=== PATIENT | female | born 1955 | race Hispanic/Latino ===

== ENCOUNTER 2016-09-22 13:54 | Inpatient (IN) | payer BC ==
[2016-09-22] MEDS ORDERED: SENOKOT PO PRN (14:29)
[2016-09-22] MEDS ORDERED: DULCOLAX PR PRN (14:29)
[2016-09-22] MEDS ORDERED: XANAX PO PRN (14:37)
--- NOTE | 2016-09-22 15:32 | History and Physical Report ---
History of Present Illness Date: 09/22/16 Referring Facility: [facility] Date of admission: 09/22/16 13:54 Chief Complaint: metabolic encephalopathy History of present illness: POST ADMISSION PHYSICIAN EVALUATION ONSET DATE: 09/09/16 IMPAIRMENT GROUP CODE: 02.1 ETIOLOGIC DIAGNOSIS: metabolic encephalopahty secondary to sepsis STATUS CHANGES SINCE PREADMISSION SCREENING: PAS has been reviewed. In comparison, pt reports depression from recent divorce. Continues with generalized weakness, cognitive deficits. Pt reports being motivated to return to independent living and is ready for therapy evaluations in the morning. Pt continues with functional deficits and remains an appropriate candidate for IRU admission. PREVIOUS FUNCTIONAL STATUS: Independent with ADLs and transfers; Xander for gait with RW CURRENT FUNCTIONAL STATUS: per PAS, Annelise x2 for transfers from elevated surface ; s/u to totalA for ADLs HPI 60 y.o. female admitted to [facility] after being found unresponsive at her independent living facility. On admission, pt noted to be tachycardic and tachypneic, with electrolyte imbalances. Treated for sepsis and dehydration. Acute care course also complicated by acute renal failure requiring initiation of HD (MWF); to have outpt renal biopsy. Hyponatremia has improved; hypokalemia has resolved. Pt was seen and evaluated by PT/OT/FIELD CANE SCALE CLERK and found to have functional deficits due to prolonged hospital course. Pt is now admitted to IRU for aggressive therapies and ongoing medical management. Past History Past Medical History: hypertension, hyperlipidemia, other (multiple sclerosis diagnosed in her 20s with minimal flares; trigeminal neuralgia) Past Surgical History: tonsillectomy, Other (gamma knife ) Social history: . denies: smoking, alcohol abuse Family history: diabetes, stroke Medications and Allergies Active Meds: Active Medications Acetaminophen (Tylenol) 650 mg PO Q4H PRN PRN Reason: Pain MILD(1-3)/Fever >100.5/TAN Alprazolam (Xanax) 0.5 mg PO BID PRN PRN Reason: Anxiety Atenolol (Tenormin) 25 mg PO QDAY [facility] Bisacodyl (Dulcolax) 10 mg [place] QDAY PRN PRN Reason: Constipation unrelieved by MOM Carbamazepine (Tegretol) 200 mg PO QID COUNT [facility]CLUDES [facility] Fish Oil (Fish Oil) 1,200 mg PO BID [facility] Fluoxetine HCl (Prozac) 20 mg PO QDAY COUNT INCLUDES [facility] Heparin Sodium (Porcine) (Heparin) 5,000 unit SUB-Q Q12HR [facility] Hydrocortisone Acetate (Cortef) 60 mg PO BID [facility] Miscellaneous Medication (Tecfidera) 240 mg PO BID [facility] Oxycodone/Acetaminophen (Percocet 5/325) 1 tab PO Q6H PRN PRN Reason: Pain, Moderate (4-6) Senna (Senokot) 8.6 mg PO Q12H PRN PRN Reason: Laxative Effect Review of Systems All systems: negative Ears, nose, mouth and throat: no headache Cardiovascular: no chest pain, no syncope Respiratory: no cough Gastrointestinal: constipation (unsure when last bowel movement was), no nausea , no vomiting Genitourinary Female: no dysuria Neurological: weakness, no parathesias Exam - Constitutional General appearance: no acute distress, obese, other (lying in bed) - EENT Eyes: EOM intact ENT: hearing intact - Neck Neck: supple - Respiratory Respiratory effort: normal Respiratory: bilateral: CTA - Cardiovascular Rhythm: regular Heart Sounds: Present: S1 & S2 - Extremities Extremity abnormal: edema (chronic BLE) - Gastrointestinal General gastrointestinal: Present: soft, non-tender, non-distended, normal bowel sounds - Integumentary Integumentary: Present: clear - Musculoskeletal Musculoskeletal: other (4/5 BUE; 1/5 left hip flexion; 2/5 left knee flexion; 3/ 5 Right hip and knee, B/L ankle) - Neurologic Neurologic: CNII-XII intact - Psychiatric Psychiatric: appropriate mood/affect, intact judgment & insight, no memory intact (oriented to self, birthdate; not to today's date; "[facility]" in [place] or [place]), cooperative Assessment and Plan Assessment and plan: 60 y.o. morbidly obese female with acute metabolic encephalopathy secondary to sepsis; gait dysfunction secondary to prolonged hospital course; acute renal failure requiring ongoing hemodialysis (new onset). The patient is medically stable, however, requires ongoing medical management. Pt is appropriate for inpatient rehabilitation admission and is thought to be able to tolerate at least 3 hours of therapy a day, 5 days a week including 1 hour of physical therapy, 1 hour of occupational therapy, and 1 hour of speech therapy. Patient is able to understand and follow basic directions and has attainable rehab goals. Potential barriers/complications include falls, recurrent sepsis, anxiety/depression, worsening hyponatremia, seizures, worsening renal failure, skin breakdown, DVT, PE. Plan 1. Rehabilitation- Pt will undergo multidisciplinary/integrative rehab PT/OT/ FIELD CANE SCALE CLERK, Nursing. Areas to be addressed include, but are not limited to PT for mobility, strengthening, transfer training, ROM, endurance, stairs, balance; OT for ADLs, household tasks, adaptive equipment; FIELD CANE SCALE CLERK for cognition, compensatory techniques; Nursing for carryover of therapies, education, skin integrity, medication management, bowel/bladder management; Nutrition as needed; healthcare advisory services manager for discharge planning and equipment needs. Potential interventions include appropriate assistive device or adaptive equipment. Expected overall level of functional improvement by discharge is Xander to supervision for ADLs, transfers, gait. Pt will tentatively be discharged home with outpatient PT. Estimated length of stay is 1-2 weeks. 2. acute metabolic encephalopathy- FIELD CANE SCALE CLERK evaluation for cognitive deficits 3. unsteady gait- PT/OT to address balance, gait, strengthening 4. acute renal failure- Nephrology consulted; steroids; continue HD as recommended for now 5. hyponatremia- labs in AM 6. MS- aware; minimal flares; states she hasn't had an exacerbation in years; Tecfidera initially held due to transaminitis; will check labs in AM 7. Anxiety/depression- continue xanax prn; prozac 8. HTN- atenolol 9. DVT px- heparin - Patient Problems (1) Acute metabolic encephalopathy Current Visit: Yes Status: Acute (2) Unsteady gait Current Visit: Yes Status: Acute (3) Acute renal failure on dialysis Current Visit: Yes Status: Acute (4) Hyponatremia Current Visit: Yes Status: Acute (5) Multiple sclerosis Current Visit: Yes Status: Acute (6) Anxiety and depression Current Visit: Yes Status: Acute (7) HTN (hypertension) Current Visit: Yes Status: Acute Qualifiers: Hypertension type: H
[2016-09-22] MEDS: XANAX PO SCH (21:41)
[2016-09-22] MEDS: CORTEF PO SCH (21:41)
[2016-09-22] MEDS: FISH OIL PO SCH (21:41)
[2016-09-22] MEDS: PERCOCET 5/325 PO PRN (21:42)
[2016-09-22] MEDS: HEPARIN SUB-Q SCH (22:39)
[2016-09-23 06:28] LABS: Basophils % (Auto) 1.2 % (0.0-1.8); Eosinophils % (Auto) 0.4 % (0.0-4.3); Hematocrit 24.8 % (30.3-42.9); Hemoglobin 8.5 gm/dl (10.1-14.3); Mean Corpuscular HGB Conc 34 % (30-34); Mean Corpuscular Hemoglobin 32 pg (28-32); Mean Corpuscular Volume 93 fl (79-97); Platelet Count 169 K/mm3 (140-440); Red Blood Count 2.68 M/mm3 (3.65-5.03); Red Cell Distribution Width 13.7 % (13.2-15.2); White Blood Count 6.6 K/mm3 (4.5-11.0)
[2016-09-23 06:51] LABS: Albumin 2.7 g/dL (3.9-5); Albumin/Globulin Ratio 1.1 %; BUN/Creatinine Ratio 10.41; Bilirubin,Total 0.4 mg/dL (0.1-1.2); Calcium 7.9 mg/dL (8.4-10.2); Chloride 97.4 mmol/L (98-107); Potassium 3.9 mmol/L (3.6-5.0); Total Protein 5.1 g/dL (6.3-8.2)
[2016-09-23] MEDS: XANAX PO SCH ×2 (09:20→21:58)
[2016-09-23] MEDS: PROzac PO SCH (09:20)
[2016-09-23] MEDS: TENORMIN PO SCH (09:21)
[2016-09-23] MEDS: FISH OIL PO SCH ×2 (09:23→21:57)
[2016-09-23] MEDS: CORTEF PO SCH ×2 (09:23→21:57)
[2016-09-23] MEDS: HEPARIN SUB-Q SCH ×2 (09:24→22:35)
[2016-09-23] MEDS: PERCOCET 5/325 PO PRN ×2 (10:16→21:58)
--- NOTE | 2016-09-23 13:38 | Progress Note ---
Assessment and Plan 60 y.o. morbidly obese female with acute metabolic encephalopathy secondary to sepsis; gait dysfunction secondary to prolonged hospital course; acute renal failure requiring ongoing hemodialysis (new onset) - acute metabolic encephalopathy- pending SPIKE DRIVER evaluation for cognitive deficits - unsteady gait- ambulated today with PT, 35 feet with modA - acute renal failure- Pending Nephrology consult; newly initiated on HD - hyponatremia- resolved - MS- aware; Tecfidera; LFTs within normal limits - Anxiety/depression- continue xanax prn; prozac - HTN- continue atenolol - DVT px- heparin - Patient Problems (1) Acute metabolic encephalopathy Current Visit: Yes Status: Acute (2) Unsteady gait Current Visit: Yes Status: Acute (3) Acute renal failure on dialysis Current Visit: Yes Status: Acute (4) Multiple sclerosis Current Visit: Yes Status: Acute (5) Anxiety and depression Current Visit: Yes Status: Acute (6) HTN (hypertension) Current Visit: Yes Status: Acute Qualifiers: Hypertension type: essential hypertension Qualified Code(s): I10 - Essential (primary) hypertension (7) Morbid obesity due to excess calories Current Visit: Yes Status: Acute Subjective Principal diagnosis: acute metabolic encephalopathy Interval history: Pt seen between therapies this AM, F/U, IPR course, acute metabolic encephalopathy. Pt reported to be incontinent of bowel and bladder; place on toileting schedule Objective - Constitutional Vitals: Vital Signs - 12hr 09/23/16 09/23/16 08:00 09:21 Temperature 97.7 F Pulse Rate 100 H Pulse Rate [ 100 H Left] Respiratory 24 Rate Blood Pressure 168/89 Blood Pressure 168/89 [Right Arm] O2 Sat by Pulse 100 Oximetry General appearance: Present: no acute distress, obese, other (sitting up in WC; also observed later ambulating in hallway with PT) - EENT Eyes: EOM intact ENT: hearing intact - Neck Neck: supple, normal ROM - Respiratory Respiratory effort: normal Respiratory: bilateral: CTA - Cardiovascular Rhythm: regular Heart Sounds: Present: S1 & S2 Extremity abnormal: edema (BLE, chronic) - Gastrointestinal General gastrointestinal: Present: soft, normal bowel sounds - Musculoskeletal Musculoskeletal: generalized weakness (BLE) - Neurologic Neurologic: CNII-XII intact - Psychiatric Psychiatric: cooperative - Allied health notes Allied health notes reviewed: PT (mod-maxA for transfers; modA x 35 feet with RW ), OT (Xander to totalA for ADLs) - Labs CBC & Chem 7: 09/23/16 05:44 09/23/16 05:44 Labs: Abnormal lab results 09/23/16 09/23/16 Range/Units 05:44 05:44 RBC 2.68 L (3.65-5.03) M/mm3 Hgb 8.5 L (10.1-14.3) gm/dl Hct 24.8 L (30.3-42.9) % Pierce % (Auto) 9.9 H (0.0-7.3) % Lymph # 1.0 L (1.2-5.4) K/mm3 Seg Neutrophils % 72.8 H (40.0-70.0) % Chloride 97.4 L (98-107) mmol/L BUN 25 H (7-17) mg/dL Creatinine 2.4 H (0.7-1.2) mg/dL Glucose 106 H (65-100) mg/dL Calcium 7.9 L (8.4-10.2) mg/dL Total Protein 5.1 L (6.3-8.2) g/dL Albumin 2.7 L (3.9-5) g/dL
[2016-09-23] MEDS: NYSTOP TP SCH ×2 (14:00→22:36)
--- NOTE | 2016-09-23 14:30 | Consultation ---
History of Present Illness - Reason for Consult Consult date: 09/23/16 acute renal failure - History of Present Illness Mrs. Amanuel Nichole is a 60 y.o. female with history of MS , Trigeminal neuralgia presented with AMS after found unresponsive at her assisted living facility. Patient had flu like illness for which she was treated. She had not been eating or drinking well. In the ER, she was found to be tachycardic , tachypneic and hypothermic ( Temp 91 ). Renal function declined during her hospitalization. She was started on hemodialysis on Sep 15. She has been empirically treated with hydrocortisone as she reportedly had a reaction to solumedrol. She remains on hemodidalysis. Nephrology consultation has been requested by the primary team. Past History Past Medical History: hypertension, hyperlipidemia, other (multiple sclerosis diagnosed in her 20s with minimal flares; trigeminal neuralgia) Past Surgical History: tonsillectomy, Other (gamma knife ) Social history: . denies: smoking, alcohol abuse Family history: diabetes, stroke Medications and Allergies Allergies Allergy/AdvReac Type Severity Reaction Status Date / Time No Known Allergies Allergy Verified 09/22/16 18:16 Home Medications Medication Instructions Recorded Confirmed Last Taken Type No Known Home Medications [No 09/22/16 09/22/16 Unknown History Reported Home Medications] Active Meds: Active Medications Acetaminophen (Tylenol) 650 mg PO Q4H PRN PRN Reason: Pain MILD(1-3)/Fever >100.5/TAN Alprazolam (Xanax) 0.5 mg PO BID [facility] Last Admin: 09/23/16 09:20 Dose: 0.5 mg Atenolol (Tenormin) 25 mg PO QDAY [facility] Last Admin: 09/23/16 09:21 Dose: 25 mg Bisacodyl (Dulcolax) 10 mg [place] QDAY PRN PRN Reason: Constipation unrelieved by MOM Carbamazepine (Tegretol) 200 mg PO QID [facility] Last Admin: 09/23/16 14:01 Dose: 200 mg Fish Oil (Fish Oil) 1,000 mg PO BID [facility] Last Admin: 09/23/16 09:23 Dose: 1,000 mg Fluoxetine HCl (Prozac) 20 mg PO QDAY [facility] Last Admin: 09/23/16 09:20 Dose: 20 mg Heparin Sodium (Porcine) (Heparin) 5,000 unit SUB-Q Q12HR [facility] Last Admin: 09/23/16 09:24 Dose: 5,000 unit Hydrocortisone Acetate (Cortef) 60 mg PO BID [facility] Last Admin: 09/23/16 09:23 Dose: 60 mg Miscellaneous Medication (Tecfidera) 240 mg PO BID [facility] Nystatin (Nystop) 1 applic TP BID [facility] Oxycodone/Acetaminophen (Percocet 5/325) 1 tab PO Q6H PRN PRN Reason: Pain, Moderate (4-6) Last Admin: 09/23/16 10:16 Dose: 1 tab Senna (Senokot) 8.6 mg PO Q12H PRN PRN Reason: Laxative Effect Review of Systems Constitutional: no fever, no chills, no sweats Breasts: normal Cardiovascular: no chest pain, no orthopnea, no lightheadedness, no shortness of breath Respiratory: no cough, no hemoptysis, no shortness of breath, no dyspnea on exertion Gastrointestinal: no abdominal pain, no nausea, no vomiting, no diarrhea, no constipation, no melena Genitourinary Female: no dysuria, no hematuria Musculoskeletal: muscle weakness Integumentary: no rash Neurological: no headaches Exam - Vital Signs Vital signs: Vital Signs Temp Pulse Resp BP 98.0 F 104 H 22 134/83 09/22/16 14:08 09/22/16 14:08 09/22/16 14:08 09/22/16 14:08 - General Appearance General appearance: well-developed, well-nourished EENT: ATNC Respiratory: Clear to Ascultation Heart: regular, S1S2 Gastrointestinal: Present: normal, obese. Absent: tenderness, distended Integumentary: no rash Neurologic: alert and oriented x3 Psychiatric: mood/affect appropriate, cooperative Results - Lab Results 09/23/16 05:44 09/23/16 05:44 Most recent lab results Calcium 7.9 mg/dL (8.4-10.2) L 09/23/16 05:44 Assessment and Plan Impression: 1.Acute kidney injury secondary to ATN vs AIN --Urine eos negative, C3 low, hepatitis panel negative, SPEP negative, ROSSY negative; renal ultrasound is normal . 2. Sepsis 3.Ecoli UTI 4.Hx of transaminitis - AST 1077, ALT 831 5.Metabolic acidosis - mild 6.Thrombocytopenia 7.Hx of influenza (Sep 05) per records 8.Metabolic acidosis Recommendations: 1. Continue hemodialysis TTS 2. Monitor for evidence of renal recovery 3. Abx per primary team 4. Continue IV steroids - gradually taper 5.Avoid nephrotoxic agents 6.Dose medications for renal function
[2016-09-23] MEDS: TECFIDERA 240 MG PO SCH (23:36)
[2016-09-24] MEDS: TENORMIN PO SCH (08:00)
[2016-09-24] MEDS: CORTEF PO SCH ×2 (09:54→23:20)
[2016-09-24] MEDS: PROzac PO SCH (09:55)
[2016-09-24] MEDS: XANAX PO SCH ×2 (09:55→23:18)
[2016-09-24] MEDS: TECFIDERA 240 MG PO SCH ×2 (09:56→23:19)
[2016-09-24] MEDS: FISH OIL PO SCH ×2 (09:56→23:19)
[2016-09-24] MEDS: HEPARIN SUB-Q SCH ×2 (10:00→23:18)
[2016-09-24] MEDS: NYSTOP TP SCH ×2 (10:03→23:22)
--- NOTE | 2016-09-24 15:24 | IRU Plan of Care ---
Interdisciplinary Plan of Care - IP IRU INTERDISCIPLINARY PLAN: [facility] Inpatient Rehab Unit Plan of Care IRU Interdisciplinary Care Plan Start: 09/22/16 14: 08 Freq: Admission then PRN Status: Active Document 09/23/16 17:28 DB (Rec: 09/23/16 17:32 DB [id number]) Interdisciplinary Problem List Interdisciplinary Problem List Interdisciplinary Problem List Impaired Bathing/Grooming Query Text:Answers will Trigger Problems Impaired Dressing and Outcomes on Worklist. Impaired Mobility Impaired Transfers Impaired Bladder/Bowel Management Impaired Toileting Impaired Problem Solving Impaired Memory Knowledge Deficits Impaired Safety IRU Interdisciplinary Care Plan Therapy Services Therapy Services Will Include: Physical Therapy Query Text:Patient will be seen for a Occupational Therapy minimum of 3 hours of daily therapy 5 Speech Therapy out of 7 days a week. Therapy intensity may be adjusted within a 7 consecutive day period to effectively serve the individual needs of the patient. Treatment Frequency/Intensity/Duration Treatment Frequency 5 days per week Treatment Intensity 1 hour per discipline (PT/OT/ FLIGHT INSPECTOR) daily Treatment Duration 10-14 days Problem Area: Eating/Swallowing Eating/Swallowing Outcomes Eating/Swallowing Interventions Problem Area: Bathing/Grooming Bathing/Grooming Outcomes Improve [place] w/ Bathing Bathing/Grooming Interventions ADL Training Use of Assistive Devices Therapeutic Exercise Therapeutic Activity Neuromuscular Re-Education Balance Work Activity Tolerance Work Patient/Caregiver Education Problem Area: Dressing Dressing Outcomes Improve [place] w/ UB Dressing Improve [place] w/ LB Dressing Dressing Interventions ADL Training Use of Assistive Devices Neuromuscular Re-Education Therapeutic Exercise Balance Work Patient/Caregiver Education Problem Area: Mobility Mobility Outcomes Improve [place] w/ Bed Mobility Improve [place] w/ Ambulation Improve [place] w/ Stairs /Curb Improve [place] w/ Wheelchair Mobility Interventions Therapeutic Exercise Neuromuscular Re-Ed. Activity Tolerance Work Use of Assistive Devices Patient/Caregiver Education Bed Mobility Work Gait Training Household Mobility Work W/C Mobility Work Problem Area: Transfers Transfers Outcomes Improve [place] w/ Bed Transfers Improve [place] w/ Toilet Transfers Improve [place] w/ Tub/ Shower Transfers Improve [place] w/ Car Transfers Transfers Interventions Transfer Training Therapeutic Exercise Neuromuscular Re-Education Activity Tolerance Work Use of Assistive Devices Patient/Caregiver Education Problem Area: Bowel/Bladder Managment Bowel/Bladder Outcomes Continent of Bladder Continent of Bowel Bowel/Bladder Interventions Bladder Training Program Bowel Training Program Patient/Caregiver Education Problem Area: Toileting Toileting Outcomes Improve [place] w/ Toileting Toileting Interventions ADL Training Balance Work Use of Assistive Devices Patient/Caregiver Education Problem Area: Nutrition Nutrition Outcomes Understand and Comply w/ Diet Improve/Maintain Oral Intake Nutrition Interventions Nutritional Counseling Monitor Nutrient Intake Patient/Caregiver Education Problem Area: Comprehension Comprehension Outcomes Comprehension Interventions Problem Area: Expression Expression Outcomes Expression Interventions Problem Area: Problem Solving Problem Solving Outcomes Improve Problem Solving Problem Solving Interventions Cognitive Training Patient/Caregiver Education Problem Area: Memory Memory Outcomes Use Memory Aids Memory Interventions Use of Assistive Devices ( Memory Book, etc,) Review of Precautions Patient/Caregiver Education Problem Area: Pain Management Pain Management Outcomes Pain Management Interventions Problem Area: Knowledge Deficits Knowledge Deficits Outcomes Verbalize Precautions Knowledge Deficits Interventions Medication Use Education Disease Management Education Health Maintainence Education Safety Education Problem Area: Skin/Tissue Integrity Skin/Tissue Integrity Outcomes Demonstrate Understanding of Pressure Relief Skin/Tissue Integrity Interventions Pressure Relief Instruction Positioning/Turning Problem Area: Social Interaction Social Interaction Outcomes Social Interaction Interventions Problem Area: Adjustment to Disability Adjustment to Disability Outcomes Adjustment to Disability Interventions Problem Area: Discharge Concerns Discharge Concerns Outcomes Discharge Home w/ Necessary Equipment Have Home Health/Outpatient Services Discharge Concerns Interventions Discharge Planning Family/Caregiver Conference Family/Caregiver Training Problem Area: Community Reintegration Community Reintegration Outcomes Demonstrate Understanding of Community Resources Community Reintegration Interventions Provide Community Resources Problem Area: Home Management Home Management Outcomes Home Management Interventions Problem Area: Safety Safety Outcomes Provide Safe Environment Perform Selfcare Safely Demonstrate Good Safety w/ Transfers/Mobility Safety Interventions Identify Fall Risk [place] Pt. to Environment Reduce Environmental Hazards Problem Area: Medication Education Medication Education Outcomes Patient/Caregiver will Verbalize Understanding of Medications Medication Education Interventions Explain Administration/Side Effects/Interactions Problem Area: Diabetes Education Diabetes Education Outcomes Diabetes Education Interventions Problem Area: Oxygenation Oxygenation Outcomes Oxygenation Interventions Problem Area: Cardiovascular Cardiovascular Outcomes Cardiovascular Interventions Physician Only Medical Prognosis and Rehabilitation Patient demonstrates good Potential (Completed by Physician) rehab potential. Medical Prognosis: Good This plan of care has been developed based on the findings from the pre- admission assessment, post admission physician evaluation, information gathered from the assessments from all therapy disciplines and other pertinent clinicians. The plan of care has been reviewed and discussed in collaboration with the interdisciplinary team. The plan of care will be reviewed and updated at least weekly. 60 y.o. morbidly obese female with acute metabolic encephalopathy secondary to sepsis; gait dysfunction secondary to prolonged hospital course; acute renal failure requiring ongoing hemodialysis (new onset). The patient remains at risk for falls, recurrent sepsis, anxiety/depression, skin breakdown, DVT, PE. Hyponatremia has resolved; pt remains on hemodialysis at this time. Pt has tolerated therapy evaluations to date and continues with functional and cognitive deficits. Pt remains an appropriate canddiate for IRU admission.
[2016-09-24] MEDS ORDERED: NACL 0.9% 100 ML IV PRN (16:39)
[2016-09-24] MEDS ORDERED: NACL 0.9 (PRIMING MACHINE ONLY DIALYSIS) MC ONE (19:14)
[2016-09-24] MEDS ORDERED: HEPARIN ONE (19:15)
[2016-09-24] MEDS: PERCOCET 5/325 PO PRN (19:26)
--- NOTE | 2016-09-24 20:14 | Progress Note ---
Assessment and Plan Impression: 1.Acute kidney injury secondary to ATN vs AIN --Urine eos negative, C3 low, hepatitis panel negative, SPEP negative, ROSSY negative; renal ultrasound is normal . 2. Hx of sepsis 3.Hx of Ecoli UTI 4.Hx of transaminitis - AST 1077, ALT 831 5.Metabolic acidosis - mild 6.Thrombocytopenia 7.Hx of influenza (Sep 05) per records 8.Metabolic acidosis Recommendations: 1. Hemodialysis today; continue TTS schedule for now 2. Monitor for evidence of renal recovery 3. Continue steroids - gradually taper 4.Avoid nephrotoxic agents 5.Dose medications for renal function Subjective Date of service: 09/24/16 Principal diagnosis: acute metabolic encephalopathy Interval history: Patient has no complaints today Objective - Vital Signs Vital signs: Vital Signs - 12hr 09/24/16 09/24/16 09/24/16 16:00 17:30 17:45 Temperature 97.7 F 98.1 F Pulse Rate 86 81 Pulse Rate [ 90 Left Brachial] Respiratory 20 16 Rate Blood Pressure 164/100 147/95 Blood Pressure 142/86 [Left Arm] O2 Sat by Pulse 96 Oximetry 09/24/16 09/24/16 09/24/16 18:00 18:30 18:45 Temperature Pulse Rate 83 84 82 Pulse Rate [ Left Brachial] Respiratory Rate Blood Pressure 152/85 148/96 130/87 Blood Pressure [Left Arm] O2 Sat by Pulse Oximetry 09/24/16 09/24/16 09/24/16 19:00 19:15 19:26 Temperature Pulse Rate 82 106 H Pulse Rate [ Left Brachial] Respiratory 16 Rate Blood Pressure 156/80 117/75 Blood Pressure [Left Arm] O2 Sat by Pulse Oximetry 09/24/16 19:30 Temperature Pulse Rate 89 Pulse Rate [ Left Brachial] Respiratory Rate Blood Pressure 150/89 Blood Pressure [Left Arm] O2 Sat by Pulse Oximetry - General Appearance General appearance: well-developed, well-nourished EENT: ATNC Respiratory: Present: Clear to Ascultation Cardiology: regular, S1S2 Gastrointestinal: normal Integumentary: no rash Neurologic: alert and oriented x3 Psychiatric: mood/affect appropriate, cooperative - Lab 09/23/16 05:44 09/23/16 05:44 Most recent lab results Calcium 7.9 mg/dL (8.4-10.2) L 09/23/16 05:44
[2016-09-25] MEDS: PERCOCET 5/325 PO PRN ×2 (06:11→13:15)
[2016-09-25] MEDS: PROzac PO SCH (09:37)
[2016-09-25] MEDS: FISH OIL PO SCH ×2 (09:37→22:07)
[2016-09-25] MEDS: TENORMIN PO SCH (09:37)
[2016-09-25] MEDS: CORTEF PO SCH ×2 (09:38→22:07)
[2016-09-25] MEDS: XANAX PO SCH ×2 (09:38→22:07)
[2016-09-25] MEDS: TECFIDERA 240 MG PO SCH ×2 (09:39→22:07)
[2016-09-25] MEDS: NYSTOP TP SCH ×2 (09:39→22:08)
[2016-09-25] MEDS: HEPARIN SUB-Q SCH ×2 (09:39→22:08)
--- NOTE | 2016-09-25 10:11 | Progress Note ---
Assessment and Plan Impression: 1.Acute kidney injury secondary to ATN vs AIN --Urine eos negative, C3 low, hepatitis panel negative, SPEP negative, ROSSY negative; renal ultrasound is normal . 2. s/p Sepsis 3. s/p Ecoli UTI 4. s/p Transaminitis 5.Metabolic acidosis - mild 6.Thrombocytopenia 7.Hx of influenza (Sep 05) per records 8.Metabolic acidosis Recommendations: 1. Hemodialysis TTS schedule 2. Monitor for evidence of renal recovery 3. Continue steroids - will gradually taper 4.Avoid nephrotoxic agents 5.Dose medications for renal function 6.AM labs ordered Subjective Date of service: 09/25/16 Principal diagnosis: acute metabolic encephalopathy Objective - Vital Signs Vital signs: Vital Signs - 12hr 09/24/16 09/25/16 09/25/16 23:00 06:11 07:11 Temperature 98.5 F Pulse Rate Pulse Rate [ 88 Right Brachial] Respiratory 20 20 20 Rate Blood Pressure Blood Pressure [Left Arm] Blood Pressure 144/80 [Right Arm] O2 Sat by Pulse 98 Oximetry 09/25/16 09/25/16 08:00 09:37 Temperature 98.1 F Pulse Rate 90 Pulse Rate [ 90 Right Brachial] Respiratory 20 Rate Blood Pressure 142/90 Blood Pressure 142/90 [Left Arm] Blood Pressure [Right Arm] O2 Sat by Pulse 98 Oximetry - General Appearance General appearance: well-developed, well-nourished EENT: ATNC Respiratory: Present: Clear to Ascultation Cardiology: regular, S1S2 Gastrointestinal: normal, no tenderness, no distended Integumentary: no rash Neurologic: alert and oriented x3 Psychiatric: mood/affect appropriate, cooperative - Lab 09/23/16 05:44 09/23/16 05:44 Most recent lab results Calcium 7.9 mg/dL (8.4-10.2) L 09/23/16 05:44
[2016-09-25] MEDS: TYLENOL PO PRN (17:18)
[2016-09-26] MEDS: TENORMIN PO SCH (10:22)
[2016-09-26] MEDS: XANAX PO SCH ×2 (10:23→22:19)
[2016-09-26] MEDS: PROzac PO SCH (10:23)
[2016-09-26] MEDS: FISH OIL PO SCH ×2 (10:23→22:19)
[2016-09-26] MEDS: CORTEF PO SCH ×2 (10:28→22:20)
[2016-09-26] MEDS: HEPARIN SUB-Q SCH ×2 (10:29→22:18)
[2016-09-26] MEDS: TECFIDERA 240 MG PO SCH ×2 (10:29→22:21)
[2016-09-26] MEDS: NYSTOP TP SCH ×2 (10:30→22:22)
--- NOTE | 2016-09-26 11:57 | Progress Note ---
Assessment and Plan Impression: 1.Acute kidney injury secondary to ATN vs AIN --Urine eos negative, C3 low, hepatitis panel negative, SPEP negative, ROSSY negative; renal ultrasound is normal . 2. s/p Sepsis 3. s/p Ecoli UTI 4. s/p Transaminitis 5.Metabolic acidosis - mild 6.Thrombocytopenia 7.Hx of influenza (Sep 05) per records 8.Metabolic acidosis Recommendations: 1. Hemodialysis TTS schedule 2. Monitor for evidence of renal recovery 3. Continue steroids - will gradually taper 4.Avoid nephrotoxic agents 5.Dose medications for renal function 6.AM labs ordered Subjective Date of service: 09/26/16 Principal diagnosis: acute metabolic encephalopathy Objective - Vital Signs Vital signs: Vital Signs - 12hr 09/26/16 10:22 Pulse Rate 83 Blood Pressure 136/79 - Lab 09/23/16 05:44 09/23/16 05:44 Most recent lab results Calcium 7.9 mg/dL (8.4-10.2) L 09/23/16 05:44
[2016-09-26 14:14] LABS: BUN/Creatinine Ratio 14.28; Calcium 8.8 mg/dL (8.4-10.2); Chloride 95.5 mmol/L (98-107); Potassium 3.8 mmol/L (3.6-5.0)
--- NOTE | 2016-09-26 14:19 | Progress Note ---
Assessment and Plan 60 y.o. morbidly obese female with acute metabolic encephalopathy secondary to sepsis; gait dysfunction secondary to prolonged hospital course; acute renal failure requiring ongoing hemodialysis (new onset) - acute metabolic encephalopathy- ongoing cognitive deficits - unsteady gait- ambulating up to 40 feet with PT - acute renal failure- Nephrology following; newly initiated on HD - MS- aware; Tecfidera - Anxiety/depression- continue xanax prn; consider increase in prozac - HTN- stable on atenolol - DVT px- heparin - Patient Problems (1) Acute metabolic encephalopathy Current Visit: Yes Status: Acute (2) Unsteady gait Current Visit: Yes Status: Acute (3) Acute renal failure on dialysis Current Visit: Yes Status: Acute (4) Multiple sclerosis Current Visit: Yes Status: Acute (5) Anxiety and depression Current Visit: Yes Status: Acute (6) HTN (hypertension) Current Visit: Yes Status: Acute Qualifiers: Hypertension type: essential hypertension Qualified Code(s): I10 - Essential (primary) hypertension (7) Morbid obesity due to excess calories Current Visit: Yes Status: Acute Subjective Date of service: 09/26/16 Principal diagnosis: acute metabolic encephalopathy Interval history: Pt seen in dining room this AM, F/U, IPR course, acute metabolic encephalopathy. Pt is very tearful on today; reports being frustrated at current medical condition. Nursing reported near fall over weekend; +BM Objective - Constitutional Vitals: Vital Signs - 12hr 09/26/16 10:22 Pulse Rate 83 Blood Pressure 136/79 General appearance: Present: obese - EENT Eyes: EOM intact ENT: hearing intact - Neck Neck: supple, normal ROM - Respiratory Respiratory effort: normal Respiratory: bilateral: CTA - Cardiovascular Rhythm: regular Heart Sounds: Present: S1 & S2 - Gastrointestinal General gastrointestinal: Present: soft, non-tender, normal bowel sounds - Musculoskeletal Musculoskeletal: generalized weakness - Neurologic Neurologic: CNII-XII intact - Psychiatric Psychiatric: depressed - Allied health notes Allied health notes reviewed: PT (maxA for transfers; totalA 40 feet for gait) - Labs CBC & Chem 7: 09/23/16 05:44 09/23/16 05:44
[2016-09-26] MEDS: PERCOCET 5/325 PO PRN (22:19)
[2016-09-27 05:18] LABS: Hematocrit 26.2 % (30.3-42.9); Hemoglobin 8.4 gm/dl (10.1-14.3); Mean Corpuscular HGB Conc 32 % (30-34); Mean Corpuscular Hemoglobin 31 pg (28-32); Mean Corpuscular Volume 96 fl (79-97); Platelet Count 179 K/mm3 (140-440); Red Blood Count 2.75 M/mm3 (3.65-5.03); Red Cell Distribution Width 14.7 % (13.2-15.2); White Blood Count 5.7 K/mm3 (4.5-11.0)
[2016-09-27 05:42] LABS: BUN/Creatinine Ratio 19.44; Calcium 8.2 mg/dL (8.4-10.2); Chloride 97.7 mmol/L (98-107); Potassium 4.1 mmol/L (3.6-5.0)
[2016-09-27] MEDS: HEPARIN SUB-Q SCH ×3 (08:45→21:44)
[2016-09-27] MEDS: PROzac PO SCH (08:46)
[2016-09-27] MEDS: FISH OIL PO SCH ×2 (08:46→21:44)
[2016-09-27] MEDS: TENORMIN PO SCH (08:46)
[2016-09-27] MEDS: XANAX PO SCH ×2 (08:46→21:42)
[2016-09-27] MEDS: CORTEF PO SCH ×2 (08:48→21:43)
[2016-09-27] MEDS: TECFIDERA 240 MG PO SCH ×2 (08:49→21:45)
[2016-09-27] MEDS: PERCOCET 5/325 PO PRN ×2 (09:28→21:42)
[2016-09-27] MEDS: NYSTOP TP SCH ×2 (09:30→21:50)
--- NOTE | 2016-09-27 12:18 | Progress Note ---
Assessment and Plan Impression: 1.Acute kidney injury secondary to ATN vs AIN --Urine eos negative, C3 low, hepatitis panel negative, SPEP negative, ROSSY negative; renal ultrasound is normal . 2. s/p Sepsis 3. s/p Ecoli UTI 4. s/p Transaminitis 5.Metabolic acidosis - mild 6.Thrombocytopenia 7.Hx of influenza (Sep 05) per records 8.Metabolic acidosis Recommendations: 1. Note SCr today - will hold hemodialysis for now 2. Continue to monitor for evidence of renal recovery 3. Will gradually taper steroids 4.Avoid nephrotoxic agents 5.Dose medications for renal function 6.AM labs ordered Subjective Date of service: 09/27/16 Principal diagnosis: acute metabolic encephalopathy Interval history: Patient has no complaints today Objective - Vital Signs Vital signs: Vital Signs - 12hr 09/27/16 09/27/16 08:00 08:46 Temperature 98.4 F Pulse Rate 83 Pulse Rate [ 83 Right Brachial] Respiratory 20 Rate Blood Pressure 142/74 Blood Pressure 142/74 [Right Arm] O2 Sat by Pulse 100 Oximetry - General Appearance General appearance: well-developed, well-nourished EENT: ATNC Respiratory: Present: Clear to Ascultation, Normal Exam Cardiology: regular, S1S2 Gastrointestinal: normal Integumentary: no rash, warm and dry Psychiatric: cooperative - Lab 09/27/16 04:52 09/28/16 04:45 Most recent lab results Calcium 8.2 mg/dL (8.4-10.2) L 09/27/16 04:52
--- NOTE | 2016-09-27 15:47 | Progress Note ---
Assessment and Plan 60 y.o. morbidly obese female with acute metabolic encephalopathy secondary to sepsis; gait dysfunction secondary to prolonged hospital course; acute renal failure requiring initiation of hemodialysis - acute metabolic encephalopathy- ongoing cognitive deficits - unsteady gait- Annelise for gait - acute renal failure- Nephrology following; newly initiated on HD during acute care course; HD currently on hold - MS- Eliza; pt is followed by Dr. Chaitanya Lucero in community, will call to update - Anxiety/depression- prozac and xanax newly initiated during acute care course ; Psych consulted on today; case discussed with Dr. Santiago - HTN- stable on atenolol - DVT px- heparin - team conference held on today- pt is Xander for eating; s/u for grooming and UB dressing; Annelise for bathing; mod for LB dressing; maxA for toileting, toilet and shower transfers; Annelise for sit-stand transfers; ambulating with Annelise using RW; maxA for problem solving and memory. Barriers- depression, cognition, BLE weakness; discussed potential to change to 15 hours/7 days per week schedule to prevent over fatigue in pt with MS and on HD; however, HD currently on hold; if remains on hold, will allow for breaks between therapy sessions to allow time to recover; tentative d/c date set for 10/07 - Patient Problems (1) Acute metabolic encephalopathy Current Visit: Yes Status: Acute (2) Unsteady gait Current Visit: Yes Status: Acute (3) Acute renal failure on dialysis Current Visit: Yes Status: Acute (4) Multiple sclerosis Current Visit: Yes Status: Acute (5) Anxiety and depression Current Visit: Yes Status: Acute (6) HTN (hypertension) Current Visit: Yes Status: Acute Qualifiers: Hypertension type: essential hypertension Qualified Code(s): I10 - Essential (primary) hypertension (7) Morbid obesity due to excess calories Current Visit: Yes Status: Acute Subjective Date of service: 09/27/16 Principal diagnosis: acute metabolic encephalopathy Interval history: Pt seen in room this afternoon, F/U, IPR course, acute metabolic encephalopathy. Pt's [id number] visited on today and provided baseline functional status; pt was previously completely independent; was driving up until approximately 6 months ago when Neurologist recommended this be discontinued due to neuropathy. Objective - Constitutional Vitals: Vital Signs - 12hr 09/27/16 09/27/16 08:00 08:46 Temperature 98.4 F Pulse Rate 83 Pulse Rate [ 83 Right Brachial] Respiratory 20 Rate Blood Pressure 142/74 Blood Pressure 142/74 [Right Arm] O2 Sat by Pulse 100 Oximetry General appearance: Present: no acute distress, obese - EENT Eyes: EOM intact ENT: hearing intact - Neck Neck: supple, normal ROM - Respiratory Respiratory effort: normal - Musculoskeletal Musculoskeletal: generalized weakness (BLE) - Neurologic Neurologic: CNII-XII intact - Psychiatric Psychiatric: no memory intact, cooperative, depressed (intermittently tearful) - Labs CBC & Chem 7: 09/27/16 04:52 09/27/16 04:52 Labs: Abnormal lab results 09/27/16 09/27/16 Range/Units 04:52 04:52 RBC 2.75 L (3.65-5.03) M/mm3 Hgb 8.4 L (10.1-14.3) gm/dl Hct 26.2 L (30.3-42.9) % Sodium 135 L (137-145) mmol/L Chloride 97.7 L (98-107) mmol/L BUN 35 H (7-17) mg/dL Creatinine 1.8 H (0.7-1.2) mg/dL Glucose 102 H (65-100) mg/dL Calcium 8.2 L (8.4-10.2) mg/dL
--- NOTE | 2016-09-27 23:11 | Consultation ---
History of Present Illness - Reason for Consult Consult date: 09/27/16 Reason for consult: depression - History of Present Psychiatric Illness This is a 60 year old female who [facility] after treatment of dehydration, sepsis, BRAULIO and associated metabolic encephalopathy. Due to the prolonged hospital course, she has developed some notable cognitive deficits. Currently, she is manifesting the following cognitive deficits: explicit memory, working memory, attentional control, reasoning, problem solving, and planning. During the assessment, she did not associated symptoms of a mood disorder. We reviewed her recent social circumstance just prior to the hospitalization and how this contributed to her emergent mood difficulties. Medications and Allergies Allergies Allergy/AdvReac Type Severity Reaction Status Date / Time No Known Allergies Allergy Verified 09/22/16 18:16 Home Medications Medication Instructions Recorded Confirmed Last Taken Type No Known Home Medications [No 09/22/16 09/22/16 Unknown History Reported Home Medications] Active Meds: Active Medications Acetaminophen (Tylenol) 650 mg PO Q4H PRN PRN Reason: Pain MILD(1-3)/Fever >100.5/TAN Last Admin: 09/25/16 17:18 Dose: 650 mg Alprazolam (Xanax) 0.5 mg PO BID [facility] Last Admin: 09/27/16 21:42 Dose: 0.5 mg Atenolol (Tenormin) 25 mg PO QDAY [facility] Last Admin: 09/27/16 08:46 Dose: 25 mg Bisacodyl (Dulcolax) 10 mg CA QDAY PRN PRN Reason: Constipation unrelieved by MOM Carbamazepine (Tegretol) 200 mg PO QID [facility] Last Admin: 09/27/16 21:49 Dose: 200 mg Fish Oil (Fish Oil) 1,000 mg PO BID [facility] Last Admin: 09/27/16 21:44 Dose: 1,000 mg Fluoxetine HCl (Prozac) 20 mg PO QDAY [facility] Last Admin: 09/27/16 08:46 Dose: 20 mg Heparin Sodium (Porcine) (Heparin) 5,000 unit SUB-Q Q12HR [facility] Last Admin: 09/27/16 21:44 Dose: 5,000 unit Hydrocortisone Acetate (Cortef) 60 mg PO BID [facility] Last Admin: 09/27/16 21:43 Dose: 60 mg Miscellaneous Medication (Tecfidera) 240 mg PO BID [facility] Last Admin: 09/27/16 21:45 Dose: 240 mg Nystatin (Nystop) 1 applic TP BID [facility] Last Admin: 09/27/16 21:50 Dose: 1 applic Oxycodone/Acetaminophen (Percocet 5/325) 1 tab PO Q6H PRN PRN Reason: Pain, Moderate (4-6) Last Admin: 09/27/16 21:42 Dose: 1 tab Senna (Senokot) 8.6 mg PO Q12H PRN PRN Reason: Laxative Effect Last Admin: 09/25/16 17:22 Dose: 8.6 mg Mental Status Exam - Vital signs Last Vital Signs Temp 98.5 F 09/27/16 16:00 Pulse 88 09/27/16 16:00 Resp 20 09/27/16 16:00 BP 108/65 09/27/16 16:00 Pulse Ox 100 09/27/16 16:00 - Exam Narrative exam: Today, during interview, the patient was engaged and cooperative The patient notes that their mood is: fine. Affect is labile. Patient relates sleep is: inconsistent. Energy levels are: low. Appetite is: stable Anxiety: present and related to social circumstance Appearance: Patient appears older than stated age, non-ambulatory Behavior: cooperative Cooperation: fair Insight/Judgment: limited Level of cognition: reduced Level of consciousness: reduced awareness of surrounding related to time and spatial perception Knowledge: unable to assess Speech: soft and slow Thought processes: perseverative Thought content: obsessive thoughts about being defective Perceptions: denies Results Result Diagrams: 09/27/16 04:52 09/28/16 04:45 Abnormal lab results 09/27/16 09/27/16 Range/Units 04:52 04:52 RBC 2.75 L (3.65-5.03) M/mm3 Hgb 8.4 L (10.1-14.3) gm/dl Hct 26.2 L (30.3-42.9) % Sodium 135 L (137-145) mmol/L Chloride 97.7 L (98-107) mmol/L BUN 35 H (7-17) mg/dL Creatinine 1.8 H (0.7-1.2) mg/dL Glucose 102 H (65-100) mg/dL Calcium 8.2 L (8.4-10.2) mg/dL All other labs normal. Assessment and Plan Assessment and plan: Impression: 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 Dr. Martin - We will follow to assess her response to treatment and to periodically reassess her cognitive status
[2016-09-28 05:49] LABS: BUN/Creatinine Ratio 20.5; Calcium 8.1 mg/dL (8.4-10.2); Chloride 95.6 mmol/L (98-107); Potassium 3.9 mmol/L (3.6-5.0)
[2016-09-28] MEDS: PERCOCET 5/325 PO PRN (08:02)
[2016-09-28] MEDS: TECFIDERA 240 MG PO SCH ×2 (08:03→22:45)
[2016-09-28] MEDS: XANAX PO SCH ×2 (08:05→22:46)
[2016-09-28] MEDS: FISH OIL PO SCH ×2 (08:05→22:46)
[2016-09-28] MEDS: PROzac PO SCH (08:05)
[2016-09-28] MEDS: CORTEF PO SCH ×3 (08:05→22:49)
[2016-09-28] MEDS: TENORMIN PO SCH (08:05)
[2016-09-28] MEDS: NYSTOP TP SCH ×2 (08:06→22:47)
[2016-09-28] MEDS: HEPARIN SUB-Q SCH ×2 (10:58→22:46)
--- NOTE | 2016-09-28 11:21 | Progress Note ---
Assessment and Plan Impression: 1.Acute kidney injury secondary to ATN vs AIN --Urine eos negative, C3 low, hepatitis panel negative, SPEP negative, ROSSY negative; renal ultrasound is normal . 2. s/p Sepsis 3. s/p Ecoli UTI 4. s/p Transaminitis 5.Metabolic acidosis - mild 6.Thrombocytopenia 7.Hx of influenza (Sep 05) per records 8.Metabolic acidosis Recommendations: 1. SCr 2.0 today from 1.8 yesterday; will continue to hold HD as patient w/ evidence of renal recovery 2. If renal function remains stable, will arrange permcath removal next week 3. Will gradually taper steroids - reduce to 30mg BID 4.Avoid nephrotoxic agents 5.Dose medications for renal function 6.AM labs ordered Subjective Date of service: 09/28/16 Principal diagnosis: acute metabolic encephalopathy Interval history: Patient has no complaints. Objective - Vital Signs Vital signs: Vital Signs - 12hr 09/28/16 09/28/16 08:05 08:15 Temperature 100.2 F H Pulse Rate 88 Pulse Rate [ 88 Right Brachial] Respiratory 18 Rate Blood Pressure 116/66 Blood Pressure 116/66 [Right Arm] O2 Sat by Pulse 97 Oximetry - General Appearance General appearance: well-developed, well-nourished EENT: ATNC Respiratory: Present: Clear to Ascultation Cardiology: regular, S1S2 Gastrointestinal: normal, no tenderness, no distended Integumentary: no rash Psychiatric: cooperative - Lab 09/27/16 04:52 09/29/16 04:30 Most recent lab results Calcium 8.1 mg/dL (8.4-10.2) L 09/28/16 04:45
--- NOTE | 2016-09-28 14:35 | Progress Note ---
Subjective - Reason for Consult Consult date: 09/28/16 Reason for consult: psychiatric follow up - Chief Complaint Chief complaint: The following was recorded by Dr. Luther Santiago 09/27/16: This is a 60 year old female who was transferred to [facility] from [facility] after treatment of dehydration, sepsis, BRAULIO and associated metabolic encephalopathy. Due to the prolonged hospital course, she has developed some notable cognitive deficits. Currently, she is manifesting the following cognitive deficits: explicit memory, working memory, attentional control, reasoning, problem solving , and planning. During the assessment, she did not associated symptoms of a mood disorder. We reviewed her recent social circumstance just prior to the hospitalization and how this contributed to her emergent mood difficulties. Mental Status Exam - Vital signs Last Vital Signs Temp 100.2 F H 09/28/16 08:15 Pulse 88 09/28/16 08:15 Resp 18 09/28/16 08:15 BP 116/66 09/28/16 08:15 Pulse Ox 97 09/28/16 08:15 - Exam Narrative exam: "I am confused" She is aware she cannot process her thoughts effectively. She describes herself to be "in a fog." The patient notes that their mood is: sad. Affect is labile. Patient relates sleep is: inconsistent. Energy levels are: low. Appetite is: stable Anxiety: present and related to social circumstance Appearance: Patient appears older than stated age, non-ambulatory Behavior: cooperative Cooperation: fair Insight/Judgment: limited Level of cognition: reduced Level of consciousness: reduced awareness of surrounding related to time and spatial perception Knowledge: unable to assess Speech: soft and slow Thought processes: perseverative Thought content: obsessive thoughts about being defective Perceptions: denies Assessment and Plan Impression: 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 Dr. Martin - We will follow to assess her response to treatment and to periodically reassess her cognitive status
--- NOTE | 2016-09-28 15:34 | Progress Note ---
Assessment and Plan 60 y.o. morbidly obese female with acute metabolic encephalopathy secondary to sepsis; gait dysfunction secondary to prolonged hospital course; acute renal failure requiring initiation of hemodialysis - acute metabolic encephalopathy- ongoing cognitive deficits; CT scan negative at OSH - unsteady gait- Annelise for gait and transfers; may require left AFO due to foot drop - acute renal failure- Nephrology following; HD remains on hold per Nephrology - MS- Tecfidera - Anxiety/depression- prozac and xanax newly initiated during acute care course ; Psych following - HTN- stable on atenolol - DVT px- heparin - Patient Problems (1) Acute metabolic encephalopathy Current Visit: Yes Status: Acute (2) Unsteady gait Current Visit: Yes Status: Acute (3) Acute renal failure on dialysis Current Visit: Yes Status: Acute (4) Multiple sclerosis Current Visit: Yes Status: Acute (5) Anxiety and depression Current Visit: Yes Status: Acute (6) HTN (hypertension) Current Visit: Yes Status: Acute Qualifiers: Hypertension type: essential hypertension Qualified Code(s): I10 - Essential (primary) hypertension (7) Morbid obesity due to excess calories Current Visit: Yes Status: Acute (8) Left foot drop Current Visit: Yes Status: Acute Subjective Date of service: 09/28/16 Principal diagnosis: acute metabolic encephalopathy Interval history: Pt seen in PT gym this AM, F/U, IPR course, acute metabolic encephalopathy. Per nursing, pt with headache this AM; relieved when seen. Objective - Constitutional Vitals: Vital Signs - 12hr 09/28/16 09/28/16 08:05 08:15 Temperature 100.2 F H Pulse Rate 88 Pulse Rate [ 88 Right Brachial] Respiratory 18 Rate Blood Pressure 116/66 Blood Pressure 116/66 [Right Arm] O2 Sat by Pulse 97 Oximetry General appearance: Present: no acute distress, obese, other (in WC) - EENT Eyes: EOM intact ENT: hearing intact - Neck Neck: supple, normal ROM - Respiratory Respiratory effort: normal Extremity abnormal: edema (unchanged), other (1/5 left hip flexion; 3/5 knee extension; left foot drop) - Musculoskeletal Musculoskeletal: left sided weakness (LLE) - Neurologic Neurologic: CNII-XII intact - Psychiatric Psychiatric: no memory intact, cooperative - Allied health notes Allied health notes reviewed: PT (min-CGA for transfers; Annelise for gait), OT (min -modA for dressing) - Labs CBC & Chem 7: 09/27/16 04:52 09/28/16 04:45 Labs: Abnormal lab results 09/28/16 Range/Units 04:45 Chloride 95.6 L (98-107) mmol/L BUN 41 H (7-17) mg/dL Creatinine 2.0 H (0.7-1.2) mg/dL Glucose 107 H (65-100) mg/dL Calcium 8.1 L (8.4-10.2) mg/dL Total Creatine Kinase 209 H (30-135) units/L
[2016-09-29 05:16] LABS: BUN/Creatinine Ratio 24.11; Calcium 8.1 mg/dL (8.4-10.2); Chloride 99.4 mmol/L (98-107); Potassium 4.1 mmol/L (3.6-5.0)
--- NOTE | 2016-09-29 09:00 | Progress Note ---
Assessment and Plan Impression: 1.Acute kidney injury secondary to ATN vs AIN --Urine eos negative, C3 low, hepatitis panel negative, SPEP negative, ROSSY negative; renal ultrasound is normal . 2. s/p Sepsis 3. s/p Ecoli UTI 4. s/p Transaminitis 5.Metabolic acidosis - mild 6.Thrombocytopenia 7.Hx of influenza (Sep 05) per records 8.Metabolic acidosis Recommendations: 1. SCr 1.7mg/dL - today; will continue to hold HD as patient w/ evidence of renal recovery 2. If renal function remains stable, will arrange permcath removal next week 3. Continue hydrocortisone 30mg BID - gradually 4. Avoid nephrotoxic agents 5. Dose medications for renal function 6. AM labs ordered Subjective Date of service: 09/29/16 Principal diagnosis: acute metabolic encephalopathy Objective - Vital Signs Vital signs: Vital Signs - 12hr 09/28/16 22:00 Respiratory 20 Rate [Back] - General Appearance General appearance: well-developed, well-nourished EENT: ATNC Respiratory: Present: Decreased Breath Sounds Cardiology: regular, S1S2 Gastrointestinal: normal, no tenderness, no distended Integumentary: no rash Neurologic: alert and oriented x3 Psychiatric: cooperative - Lab 09/27/16 04:52 09/29/16 04:30 Most recent lab results Calcium 8.1 mg/dL (8.4-10.2) L 09/29/16 04:30
[2016-09-29] MEDS: CORTEF PO SCH ×2 (10:24→21:38)
[2016-09-29] MEDS: XANAX PO SCH ×2 (10:25→21:38)
[2016-09-29] MEDS: PROzac PO SCH (10:26)
[2016-09-29] MEDS: FISH OIL PO SCH ×2 (10:27→21:37)
[2016-09-29] MEDS: HEPARIN SUB-Q SCH ×2 (10:29→21:39)
[2016-09-29] MEDS: PERCOCET 5/325 PO PRN ×2 (10:36→18:45)
[2016-09-29] MEDS: TENORMIN PO SCH (10:38)
[2016-09-29] MEDS: TECFIDERA 240 MG PO SCH ×2 (10:40→21:37)
--- NOTE | 2016-09-29 15:24 | Progress Note ---
Assessment and Plan 60 y.o. morbidly obese female with acute metabolic encephalopathy secondary to sepsis; gait dysfunction secondary to prolonged hospital course; acute renal failure requiring initiation of hemodialysis - acute metabolic encephalopathy- ongoing cognitive deficits; CT scan negative at OSH - unsteady gait- Annelise for gait and transfers; may require left AFO due to foot drop - acute renal failure- Nephrology following; HD remains on hold per Nephrology; tapering steroids - MS- Tecfidera; Spoke with Dr. Lucero, outpt Neurologist on today regarding course; no new recommendations made - Anxiety/depression- continue prozac and xanax; Psych following - HTN- stable - leukocytosis- ?steroid induced; check screening UA, C&S; previously with garrett - DVT px- heparin - Patient Problems (1) Acute metabolic encephalopathy Current Visit: Yes Status: Acute (2) Unsteady gait Current Visit: Yes Status: Acute (3) Acute renal failure on dialysis Current Visit: Yes Status: Acute (4) Multiple sclerosis Current Visit: Yes Status: Acute (5) Anxiety and depression Current Visit: Yes Status: Acute (6) HTN (hypertension) Current Visit: Yes Status: Acute Qualifiers: Hypertension type: essential hypertension Qualified Code(s): I10 - Essential (primary) hypertension (7) Morbid obesity due to excess calories Current Visit: Yes Status: Acute (8) Left foot drop Current Visit: Yes Status: Acute Subjective Date of service: 09/29/16 Principal diagnosis: acute metabolic encephalopathy Interval history: Pt seen in room this afternoon, F/U, IPR course, acute metabolic encephalopathy. c/o back pain; also with temp overnight Objective - Constitutional Vitals: Vital Signs - 12hr 09/29/16 08:00 Temperature 99.7 F H Pulse Rate [ 86 Right Brachial] Respiratory 20 Rate Blood Pressure 138/79 [Left Arm] O2 Sat by Pulse 96 Oximetry General appearance: Present: mild distress (back pain), obese - EENT Eyes: EOM intact ENT: hearing intact - Neck Neck: supple, normal ROM - Respiratory Respiratory effort: normal Respiratory: bilateral: CTA - Cardiovascular Rhythm: regular Heart Sounds: Present: S1 & S2 Extremity abnormal: edema (BLE unchanged) - Gastrointestinal General gastrointestinal: Present: soft, non-tender, non-distended, normal bowel sounds - Musculoskeletal Musculoskeletal: left sided weakness (LLE) - Neurologic Neurologic: CNII-XII intact - Psychiatric Psychiatric: no memory intact (perseverates at times), cooperative - Allied health notes Allied health notes reviewed: PT (modA for transfers; Annelise short distances for gait) - Labs CBC & Chem 7: 09/27/16 04:52 09/29/16 04:30 Labs: Abnormal lab results 09/29/16 Range/Units 04:30 BUN 41 H (7-17) mg/dL Creatinine 1.7 H (0.7-1.2) mg/dL Glucose 108 H (65-100) mg/dL Calcium 8.1 L (8.4-10.2) mg/dL
[2016-09-29] MEDS: NYSTOP TP SCH ×2 (16:00→21:40)
--- NOTE | 2016-09-29 23:14 | Progress Note ---
Subjective - Reason for Consult Consult date: 09/29/16 Reason for consult: depression and AMS - Chief Complaint Chief complaint: This is a 60 year old female who was transferred to [facility] from [facility] after treatment of dehydration, sepsis, BRAULIO and associated metabolic encephalopathy. Due to the prolonged hospital course, she has developed some notable cognitive deficits. Currently, she is manifesting the following cognitive deficits: explicit memory, working memory, attentional control, reasoning, problem solving, and planning. She remains impaired with respect to the above mentioned cognitive domains during my assessment today. Mental Status Exam - Vital signs Last Vital Signs Temp 100 F H 09/29/16 16:00 Pulse 91 H 09/29/16 16:00 Resp 20 09/29/16 16:00 BP 156/89 09/29/16 16:00 Pulse Ox 99 09/29/16 16:00 Assessment and Plan Impression: 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 Dr. Martin - We will follow to assess her response to treatment and to periodically reassess her cognitive status - consider reducing the scheduled medications that can worsen AMS, such as alprazolam
[2016-09-30 05:18] LABS: Hematocrit 25.2 % (30.3-42.9); Hemoglobin 8.2 gm/dl (10.1-14.3); Mean Corpuscular HGB Conc 33 % (30-34); Mean Corpuscular Hemoglobin 30 pg (28-32); Platelet Count 182 K/mm3 (140-440); White Blood Count 9.1 K/mm3 (4.5-11.0)
[2016-09-30 05:23] LABS: Mean Corpuscular Volume 94 fl (79-97)
[2016-09-30 05:34] LABS: BUN/Creatinine Ratio 23.33; Calcium 8.4 mg/dL (8.4-10.2); Chloride 95.4 mmol/L (98-107); Potassium 3.4 mmol/L (3.6-5.0)
[2016-09-30] MEDS: CORTEF PO SCH ×2 (10:15→23:01)
[2016-09-30] MEDS: XANAX PO SCH ×2 (10:15→23:02)
[2016-09-30] MEDS: PERCOCET 5/325 PO PRN ×2 (10:15→23:02)
[2016-09-30] MEDS: TECFIDERA 240 MG PO SCH ×2 (10:15→23:04)
[2016-09-30] MEDS: FISH OIL PO SCH ×2 (10:15→23:02)
[2016-09-30] MEDS: TENORMIN PO SCH (10:15)
[2016-09-30] MEDS: HEPARIN SUB-Q SCH ×2 (10:15→23:03)
[2016-09-30] MEDS: PROzac PO SCH (10:15)
[2016-09-30] MEDS: NYSTOP TP SCH ×2 (10:15→23:05)
--- NOTE | 2016-09-30 12:24 | Progress Note ---
Assessment and Plan 60 y.o. morbidly obese female with acute metabolic encephalopathy secondary to sepsis; gait dysfunction secondary to prolonged hospital course; acute renal failure requiring initiation of hemodialysis - acute metabolic encephalopathy- ongoing cognitive deficits; CT scan negative at OSH - unsteady gait- moda for transfers, Annelise for gait; will likely require metal AFO - acute renal failure- BUN/Cr improving; Nephrology following; HD discontinued, tapering off steroids - MS- Tecfidera - Anxiety/depression- prozac, xanax; Psych following - HTN- stable - leukocytosis- ?steroid induced; pending UA, C&S; ok to straight cath due to incontinence; previously with garrett - DVT px- heparin - Patient Problems (1) Acute metabolic encephalopathy Current Visit: Yes Status: Acute (2) Unsteady gait Current Visit: Yes Status: Acute (3) Acute renal failure on dialysis Current Visit: Yes Status: Acute (4) Multiple sclerosis Current Visit: Yes Status: Acute (5) Anxiety and depression Current Visit: Yes Status: Acute (6) HTN (hypertension) Current Visit: Yes Status: Acute Qualifiers: Hypertension type: essential hypertension Qualified Code(s): I10 - Essential (primary) hypertension (7) Morbid obesity due to excess calories Current Visit: Yes Status: Acute (8) Left foot drop Current Visit: Yes Status: Acute Subjective Date of service: 09/30/16 Principal diagnosis: acute metabolic encephalopathy Interval history: Pt seen in gym and in room on today, F/U, IPR course, acute metabolic encephalopathy. mild back pain; again with temp overnight Objective - Constitutional Vitals: Vital Signs - 12hr 09/30/16 08:15 Temperature 99.1 F Pulse Rate [ 100 H Right Brachial] Respiratory 20 Rate Blood Pressure 134/79 [Left Arm] O2 Sat by Pulse 96 Oximetry General appearance: Present: no acute distress, obese - EENT Eyes: EOM intact ENT: hearing intact - Neck Neck: supple, normal ROM - Respiratory Respiratory effort: normal Respiratory: bilateral: CTA - Cardiovascular Rhythm: regular Heart Sounds: Present: S1 & S2 Extremity abnormal: edema - Gastrointestinal General gastrointestinal: Present: soft, non-tender, non-distended, normal bowel sounds - Integumentary Integumentary: clear - Musculoskeletal Musculoskeletal: left sided weakness (LLE) - Neurologic Neurologic: CNII-XII intact - Psychiatric Psychiatric: appropriate mood/affect, cooperative - Allied health notes Allied health notes reviewed: nursing (supervision to totalA for ADLs) - Labs CBC & Chem 7: 09/30/16 04:41 09/30/16 04:41 Labs: Abnormal lab results 09/30/16 09/30/16 Range/Units 04:41 04:41 RBC 2.70 L (3.65-5.03) M/mm3 Hgb 8.2 L (10.1-14.3) gm/dl Hct 25.2 L (30.3-42.9) % Sodium 135 L (137-145) mmol/L Potassium 3.4 L (3.6-5.0) mmol/L Chloride 95.4 L (98-107) mmol/L BUN 35 H (7-17) mg/dL Creatinine 1.5 H (0.7-1.2) mg/dL
[2016-09-30] MEDS ORDERED: K-DUR PO ONE (15:25)
[2016-09-30] MEDS: TYLENOL PO PRN (15:58)
--- NOTE | 2016-09-30 21:05 | Progress Note ---
Subjective - Reason for Consult Consult date: 09/30/16 Reason for consult: depression - Chief Complaint Chief complaint: This is a 60 year old female who was transferred to [facility] from [facility] after treatment of dehydration, sepsis, BRAULIO and associated metabolic encephalopathy. Due to the prolonged hospital course, she has developed some notable cognitive deficits. Currently, she is manifesting the following cognitive deficits: explicit memory, working memory, attentional control, reasoning, problem solving, and planning. She remains impaired with respect to the above mentioned cognitive domains during my assessment today. She was attending her speech therapy appointment during my clinical interview. Appearance: Patient appears older than stated age, non-ambulatory Behavior: cooperative Cooperation: fair Insight/Judgment: limited Level of cognition: reduced Level of consciousness: reduced awareness of surrounding related to time and spatial perception Knowledge: unable to assess Speech: soft and slow Thought processes: perseverative Thought content: obsessive thoughts about being defective Perceptions: denies Mental Status Exam - Vital signs Last Vital Signs Temp 98.1 F 09/30/16 17:00 Pulse 78 09/30/16 17:00 Resp 20 09/30/16 17:00 BP 133/77 09/30/16 17:00 Pulse Ox 100 09/30/16 17:00 Assessment and Plan Impression: 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 Dr. Martin - We will follow to assess her response to treatment and to periodically reassess her cognitive status - consider reducing the scheduled medications that can worsen AMS, such as alprazolam
[2016-10-01 05:31] LABS: BUN/Creatinine Ratio 23.07; Chloride 97.5 mmol/L (98-107); Potassium 3.2 mmol/L (3.6-5.0)
--- NOTE | 2016-10-01 06:47 | Progress Note ---
Assessment and Plan Impression: 1.Acute kidney injury secondary to ATN vs AIN --Urine eos negative, C3 low, hepatitis panel negative, SPEP negative, ROSSY negative; renal ultrasound is normal . 2. s/p Sepsis 3. s/p Ecoli UTI 4. s/p Transaminitis 5.Metabolic acidosis - mild 6.Thrombocytopenia 7.Hx of influenza (Sep 05) per records 8.Metabolic acidosis Recommendations: 1. Renal function is stable off dialysis 2. Consulted vascular surgery for permcath removal on Monday 3. Continue hydrocortisone 30mg BID - gradually 4. Avoid nephrotoxic agents 5. Dose medications for renal function 6. AM labs ordered Subjective Date of service: 09/30/16 Principal diagnosis: acute metabolic encephalopathy Interval history: Patient not seen today - not in room Objective - Exam Narrative Exam: Deferred - Vital Signs Vital signs: Vital Signs - 12hr 09/30/16 09/30/16 09/30/16 19:00 22:00 23:00 Temperature 98.8 F Pulse Rate [ 88 Apical] Pulse Rate [ 88 Right Brachial] Respiratory 20 18 Rate Respiratory 18 Rate [Back] Blood Pressure 129/88 [Left Arm] O2 Sat by Pulse 99 99 Oximetry 09/30/16 10/01/16 23:02 00:02 Temperature Pulse Rate [ Apical] Pulse Rate [ Right Brachial] Respiratory 18 18 Rate Respiratory Rate [Back] Blood Pressure [Left Arm] O2 Sat by Pulse Oximetry - Lab 09/30/16 04:41 10/01/16 04:52 Most recent lab results Calcium 8.0 mg/dL (8.4-10.2) L 10/01/16 04:52
[2016-10-01] MEDS: XANAX PO SCH (09:13)
[2016-10-01] MEDS: PROzac PO SCH (09:14)
[2016-10-01] MEDS: FISH OIL PO SCH ×2 (09:19→22:11)
[2016-10-01] MEDS: K-DUR PO SCH ×2 (09:20→22:12)
[2016-10-01] MEDS: NYSTOP TP SCH ×2 (09:20→22:12)
[2016-10-01] MEDS: CORTEF PO SCH ×2 (09:20→22:11)
[2016-10-01] MEDS: TENORMIN PO SCH (09:21)
[2016-10-01] MEDS: HEPARIN SUB-Q SCH ×2 (09:26→22:17)
[2016-10-01] MEDS: TECFIDERA 240 MG PO SCH ×2 (09:28→22:13)
--- NOTE | 2016-10-01 11:41 | Progress Note ---
Subjective - Reason for Consult Consult date: 10/01/16 Reason for consult: delirium, depression Mental Status Exam - Vital signs Last Vital Signs Temp 98.8 F 09/30/16 19:00 Pulse 88 09/30/16 23:00 Resp 18 10/01/16 09:34 BP 129/88 09/30/16 19:00 Pulse Ox 99 09/30/16 23:00 Assessment and Plan This is a 60 year old female who was transferred to [facility] from [facility] after treatment of dehydration, sepsis, BRAULIO and associated metabolic encephalopathy. Due to the prolonged hospital course, she has developed some notable cognitive deficits. Currently, she is manifesting the following cognitive deficits: explicit memory, working memory, attentional control, reasoning, problem solving, and planning. She remains impaired with respect to the above mentioned cognitive domains during my assessment today. She was visibly upset today and still confused. Appearance: Patient appears older than stated age, non-ambulatory Behavior: cooperative Cooperation: fair Insight/Judgment: limited Level of cognition: reduced Level of consciousness: reduced awareness of surrounding related to time and spatial perception Knowledge: unable to assess Speech: soft and slow Thought processes: perseverative Thought content: obsessive thoughts about being defective Perceptions: denies Impression: 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 Dr. Martin - I will discontinue the xanax today The following delirium protocols already appeared to be followed, but just reiterating for completeness: A. Frequently reorient patient and involve him/her in their care (simple explanations of procedures, tests, medications). B. Lights on and shades open during daytime hours. C. Write date and goals of care in a visible place. D. Try to avoid unnecessary interruptions to sleep during nighttime hours. E. Obtain glasses, hearing aids from home if patient uses these at baseline. F. Avoid medications that may exacerbate delirium (especially narcotics, benzodiazepines, barbiturates, ambien, lunesta, and medications with excessive anticholinergic properties).
--- NOTE | 2016-10-01 13:28 | Progress Note ---
Assessment and Plan Impression: 1.Acute kidney injury secondary to ATN vs AIN --Urine eos negative, C3 low, hepatitis panel negative, SPEP negative, ROSSY negative; renal ultrasound is normal . 2. s/p Sepsis 3. s/p Ecoli UTI 4. s/p Transaminitis 5.Metabolic acidosis - mild 6.Thrombocytopenia 7.Hx of influenza (Sep 05) per records 8.Metabolic acidosis Recommendations: 1. Renal function is stable off dialysis 2. Consulted vascular surgery for permcath removal on Monday 3. Continue hydrocortisone 30mg BID - gradually 4. Avoid nephrotoxic agents 5. Dose medications for renal function 6. AM labs ordered Subjective Date of service: 10/01/16 Principal diagnosis: acute metabolic encephalopathy Interval history: resting in bed today Objective - Exam Narrative Exam: General appearance: well-developed, well-nourished EENT: ATNC Respiratory: Present: Decreased Breath Sounds Cardiology: regular, S1S2 Gastrointestinal: normal, no tenderness, no distended Integumentary: no rash Neurologic: alert and oriented x3 Psychiatric: cooperative - Vital Signs Vital signs: Vital Signs - 12hr 10/01/16 10/01/16 08:00 09:34 Temperature 99.3 F Pulse Rate [ 86 Right Brachial] Respiratory 16 Rate Respiratory 18 Rate [Back] Blood Pressure 122/73 [Right Arm] O2 Sat by Pulse 99 Oximetry - Lab 09/30/16 04:41 10/01/16 04:52 Most recent lab results Calcium 8.0 mg/dL (8.4-10.2) L 10/01/16 04:52
[2016-10-01] MEDS: PERCOCET 5/325 PO PRN ×2 (16:28→22:14)
[2016-10-02 05:42] LABS: Calcium 7.9 mg/dL (8.4-10.2); Chloride 102.4 mmol/L (98-107); Potassium 3.7 mmol/L (3.6-5.0)
--- NOTE | 2016-10-02 08:13 | Progress Note ---
Assessment and Plan Impression: 1.Acute kidney injury secondary to ATN vs AIN --Urine eos negative, C3 low, hepatitis panel negative, SPEP negative, ROSSY negative; renal ultrasound is normal . 2. s/p Sepsis 3. s/p Ecoli UTI 4. s/p Transaminitis 5.Metabolic acidosis - mild 6.Thrombocytopenia 7.Hx of influenza (Sep 05) per records 8.Metabolic acidosis Recommendations: 1. Renal function is stable off dialysis 2. Consulted vascular surgery for permcath removal on Monday 3. Continue hydrocortisone BID - gradually wean 4. Avoid nephrotoxic agents 5. Dose medications for renal function 6. AM labs ordered Subjective Date of service: 10/02/16 Principal diagnosis: acute metabolic encephalopathy Interval history: resting in bed today Objective - Exam Narrative Exam: General appearance: well-developed, well-nourished EENT: ATNC Respiratory: Present: Decreased Breath Sounds Cardiology: regular, S1S2 Gastrointestinal: normal, no tenderness, no distended Integumentary: no rash Neurologic: alert and oriented x3 Psychiatric: cooperative - Vital Signs Vital signs: Vital Signs - 12hr 10/01/16 10/02/16 20:00 08:03 Temperature 99.9 F H 99.1 F Pulse Rate [ 92 H 96 H Right Brachial] Respiratory 18 18 Rate Blood Pressure 138/84 [Left Arm] Blood Pressure 153/90 [Right Arm] O2 Sat by Pulse 94 96 Oximetry - Lab 09/30/16 04:41 10/02/16 04:41 Most recent lab results Calcium 7.9 mg/dL (8.4-10.2) L 10/02/16 04:41
[2016-10-02] MEDS: NYSTOP TP SCH ×2 (10:00→22:38)
[2016-10-02] MEDS: HEPARIN SUB-Q SCH ×2 (12:53→23:13)
[2016-10-02] MEDS: PERCOCET 5/325 PO PRN ×2 (12:55→22:36)
[2016-10-02] MEDS: K-DUR PO SCH ×2 (13:00→22:35)
[2016-10-02] MEDS: PROzac PO SCH (13:01)
[2016-10-02] MEDS: FISH OIL PO SCH ×2 (13:01→22:35)
[2016-10-02] MEDS: CORTEF PO SCH ×2 (13:03→22:37)
[2016-10-02] MEDS: TENORMIN PO SCH (13:03)
[2016-10-02] MEDS: TECFIDERA 240 MG PO SCH ×2 (13:04→23:12)
--- NOTE | 2016-10-02 14:05 | Event Note ---
Date: 10/02/16 Vascular surgery consulted for permacath removal. No PermCath infection, removal necessary for no longer dialysis needs. We'll plan to remove it Monday.
--- NOTE | 2016-10-02 17:52 | Progress Note ---
Subjective - Reason for Consult Reason for consult: psych management - Chief Complaint Chief complaint: This is a 60 year old female who was transferred to [facility] from [facility] after treatment of dehydration, sepsis, BRAULIO and associated metabolic encephalopathy. Today patient is improved. She is alert oriented times two. She knows the place and person. She noted today must be October 03. She was able to carry on a linear conversation with me. She notes that "I' m not thinking well," but was able to answer many questions well with me. She agrees to some depression but it stems from her divorce after decades of marriage and many other psychosocial issues. No SI/HI/AH or VH. Her mood currently is "alright." A Mental Status Exam - Vital signs Last Vital Signs Temp 99.1 F 10/02/16 08:03 Pulse 96 H 10/02/16 13:03 Resp 18 10/02/16 08:03 BP 153/90 10/02/16 13:03 Pulse Ox 96 10/02/16 08:03 - Exam Orientation: place, person Affect: other (constricted) Thought Process: Intact Perceptions: none Speech: normal rate and pattern Concentration: focused Motor activity: normal Level of consciousness: alert Memory: Intact Interaction: cooperative (spelled WORLD backwards appropriately, repeated [id number], stated presidents Sylvester, Kathleen, Vasyl) Assessment and Plan This is a 60 year old female who was transferred to [facility] from [facility] after treatment of dehydration, sepsis, BRAULIO and associated metabolic encephalopathy. Currently patient's cognition has begun improving. She denies any SI/HI.AH/VH. Her depression is better. She is beginning to improve and needs no current changes to her management.
--- NOTE | 2016-10-03 08:04 | Progress Note ---
Assessment and Plan Impression: 1.Acute kidney injury secondary to ATN vs AIN --Urine eos negative, C3 low, hepatitis panel negative, SPEP negative, ROSSY negative; renal ultrasound is normal . 2. s/p Sepsis 3. s/p Ecoli UTI 4. s/p Transaminitis 5.Metabolic acidosis - mild 6.Thrombocytopenia 7.Hx of influenza (Sep 05) per records 8.Metabolic acidosis Recommendations: 1. Renal function is stable off dialysis 2. Consulted vascular surgery for permcath removal on today 3. Continue hydrocortisone BID - gradually wean 20m bid 4. Avoid nephrotoxic agents 5. Dose medications for renal function 6. AM labs ordered Subjective Date of service: 10/03/16 Principal diagnosis: acute metabolic encephalopathy Interval history: resting in bed today Objective - Exam Narrative Exam: General appearance: well-developed, well-nourished EENT: ATNC Respiratory: Present: Decreased Breath Sounds Cardiology: regular, S1S2 Gastrointestinal: normal, no tenderness, no distended Integumentary: no rash Neurologic: alert and oriented x3 Psychiatric: cooperative - Lab 09/30/16 04:41 10/02/16 04:41 Most recent lab results Calcium 7.9 mg/dL (8.4-10.2) L 10/02/16 04:41
[2016-10-03] MEDS: PERCOCET 5/325 PO PRN ×2 (11:59→21:52)
[2016-10-03] MEDS: FISH OIL PO SCH ×2 (11:59→21:50)
[2016-10-03] MEDS: PROzac PO SCH (12:02)
[2016-10-03] MEDS: CORTEF PO SCH ×2 (12:02→21:51)
[2016-10-03] MEDS: TECFIDERA 240 MG PO SCH ×2 (12:03→21:50)
[2016-10-03] MEDS: NYSTOP TP SCH ×2 (12:04→21:53)
[2016-10-03] MEDS: TENORMIN PO SCH (12:05)
[2016-10-03] MEDS: HEPARIN SUB-Q SCH ×2 (12:06→21:52)
[2016-10-03] MEDS: K-DUR PO SCH (12:45)
--- NOTE | 2016-10-03 15:52 | Progress Note ---
Subjective - Reason for Consult Consult date: 10/03/16 Reason for consult: psychiatric follow up - Chief Complaint Chief complaint: This is a 60 year old female who was transferred to [facility] from [facility] after treatment of dehydration, sepsis, BRAULIO and associated metabolic encephalopathy. She agrees to some depression but it stems from her divorce after decades of marriage. She discussed how she is lonely and sad about her marriage ending. No SI/HI/AH or VH. Mental Status Exam - Vital signs Last Vital Signs Temp 99 F 10/03/16 08:00 Pulse 97 H 10/03/16 08:00 Resp 20 10/03/16 08:00 BP 150/86 10/03/16 12:05 Pulse Ox 97 10/03/16 08:00 - Exam Narrative exam: "This isn't me" She discussed having a difficult time organizing her thoughts. Her thought process is linear The patient notes that their mood is: sad. Affect is labile, to a lesser extent. Patient relates sleep is: inconsistent. Energy levels are: low. Appetite is: stable Anxiety: present and related to social circumstance Appearance: Patient appears older than stated age, non-ambulatory Behavior: cooperative Cooperation: fair Insight/Judgment: limited Level of cognition: reduced Level of consciousness: reduced awareness of surrounding related to time and spatial perception Knowledge: unable to assess Speech: soft and slow Thought processes: perseverative Thought content: ruminative Perceptions: denies Assessment and Plan Currently, she is manifesting the following cognitive deficits: explicit memory , working memory, attentional control, reasoning, problem solving, and planning. She remains impaired with respect to the above mentioned cognitive domains Impression: 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 Dr. Martin - We will follow to assess her response to treatment and to periodically reassess her cognitive status - consider reducing the scheduled medications that can worsen AMS, such as alprazolam
--- NOTE | 2016-10-03 15:53 | Progress Note ---
Assessment and Plan 60 y.o. morbidly obese female with acute metabolic encephalopathy secondary to sepsis; gait dysfunction secondary to prolonged hospital course; acute renal failure requiring initiation of hemodialysis - acute metabolic encephalopathy- continue to address in [facility] - unsteady gait- min-moda for transfers, Annelise for gait; will likely require metal AFO - acute renal failure- resolved; BUN normalizing, Cr WNL; Nephrology following; HD discontinued, tapering off steroids; pending permcath removal - MS- Tecfidera - Anxiety/depression- prozac, xanax; Psych following - HTN- elevated this AM; follow - leukocytosis- ?steroid induced - Meredith UTI- diflucan - DVT px- heparin - Patient Problems (1) Acute metabolic encephalopathy Current Visit: Yes Status: Acute (2) Unsteady gait Current Visit: Yes Status: Acute (3) Multiple sclerosis Current Visit: Yes Status: Acute (4) Anxiety and depression Current Visit: Yes Status: Acute (5) HTN (hypertension) Current Visit: Yes Status: Acute Qualifiers: Qualified Code(s): I10 - Essential (primary) hypertension (6) Morbid obesity due to excess calories Current Visit: Yes Status: Acute (7) Left foot drop Current Visit: Yes Status: Acute Subjective Date of service: 10/03/16 Principal diagnosis: acute metabolic encephalopathy Interval history: Pt seen between therapies on this AM, F/U, IPR course, acute metabolic encephalopathy. pt with diarrhea this AM Objective - Constitutional Vitals: Vital Signs - 12hr 10/03/16 10/03/16 08:00 12:05 Temperature 99 F Pulse Rate [ 97 H Right Brachial] Respiratory 20 Rate Blood Pressure 150/86 Blood Pressure 150/86 [Left Arm] O2 Sat by Pulse 97 Oximetry General appearance: Present: no acute distress, obese - EENT Eyes: EOM intact ENT: hearing intact - Neck Neck: supple, normal ROM - Respiratory Respiratory effort: normal Extremity abnormal: edema (unchanged, BLE) - Gastrointestinal General gastrointestinal: Present: soft, non-tender - Musculoskeletal Musculoskeletal: left sided weakness (LLE) - Neurologic Neurologic: CNII-XII intact - Psychiatric Psychiatric: no memory intact, cooperative - Allied health notes Allied health notes reviewed: PT (min-modA for bed mobility; Annelise for gait) - Labs CBC & Chem 7: 09/30/16 04:41 10/02/16 04:41
[2016-10-03] MEDS ORDERED: DIFLUCAN PO ONE (15:58)
[2016-10-04 05:13] LABS: Hematocrit 23.9 % (30.3-42.9); Hemoglobin 7.9 gm/dl (10.1-14.3); Mean Corpuscular HGB Conc 33 % (30-34); Mean Corpuscular Hemoglobin 31 pg (28-32); Mean Corpuscular Volume 94 fl (79-97); Platelet Count 177 K/mm3 (140-440); Red Blood Count 2.56 M/mm3 (3.65-5.03); Red Cell Distribution Width 14.6 % (13.2-15.2); White Blood Count 8.3 K/mm3 (4.5-11.0)
[2016-10-04 07:05] LABS: Anisocytosis 1+; Blastocytes % (Manual) 0 %; Diff Status Complete; Eosinophils % (Manual) 0 % (0.0-4.3); Hypochromasia 1+; Ovalocytes Few; Tear Drop Cells Rare
--- NOTE | 2016-10-04 07:42 | Progress Note ---
Assessment and Plan Impression: 1.Acute kidney injury secondary to ATN vs AIN --Urine eos negative, C3 low, hepatitis panel negative, SPEP negative, ROSSY negative; renal ultrasound is normal . 2. s/p Sepsis 3. s/p Ecoli UTI 4. s/p Transaminitis 5.Metabolic acidosis - mild 6.Thrombocytopenia 7.Hx of influenza (Sep 05) per records 8.Metabolic acidosis Recommendations: 1. Renal function is stable off dialysis 2. Consulted vascular surgery for permcath removal 3. Continue hydrocortisone BID - gradually wean 20m bid 4. Avoid nephrotoxic agents 5. Dose medications for renal function 6. AM labs ordered Subjective Date of service: 10/04/16 Principal diagnosis: acute metabolic encephalopathy Interval history: resting in bed today Objective - Exam Narrative Exam: General appearance: well-developed, well-nourished EENT: ATNC Respiratory: Present: Decreased Breath Sounds Cardiology: regular, S1S2 Gastrointestinal: normal, no tenderness, no distended Integumentary: no rash Neurologic: alert and oriented x3 Psychiatric: cooperative - Vital Signs Vital signs: Vital Signs - 12hr 10/03/16 10/03/16 10/03/16 20:00 21:52 22:00 Temperature 98.0 F Pulse Rate [ 100 H Apical] Pulse Rate [ 104 H Right Brachial] Respiratory 22 22 Rate Respiratory 20 Rate [Back] Blood Pressure 128/83 [Right Arm] O2 Sat by Pulse 100 100 Oximetry 10/03/16 22:52 Temperature Pulse Rate [ Apical] Pulse Rate [ Right Brachial] Respiratory 20 Rate Respiratory Rate [Back] Blood Pressure [Right Arm] O2 Sat by Pulse Oximetry - Lab 10/04/16 04:30 10/02/16 04:41 Most recent lab results Calcium 7.9 mg/dL (8.4-10.2) L 10/02/16 04:41
[2016-10-04] MEDS: FISH OIL PO SCH ×2 (08:44→22:11)
[2016-10-04] MEDS: DIFLUCAN PO SCH (08:44)
[2016-10-04] MEDS: PROzac PO SCH (08:44)
[2016-10-04] MEDS: TENORMIN PO SCH (08:45)
[2016-10-04] MEDS: CORTEF PO SCH ×2 (08:46→22:12)
[2016-10-04] MEDS: TECFIDERA 240 MG PO SCH ×2 (08:48→22:10)
[2016-10-04] MEDS: HEPARIN SUB-Q SCH ×3 (08:49→22:12)
[2016-10-04] MEDS ORDERED: XYLOCAINE 1% 20 mL INFILTRATI ONE (09:18)
[2016-10-04] MEDS: NYSTOP TP SCH ×2 (09:19→22:15)
--- NOTE | 2016-10-04 09:31 | Progress Note ---
Subjective - Reason for Consult Reason for consult: psych management - Chief Complaint Chief complaint: This is a 60 year old female who [facility] after treatment of dehydration, sepsis, BRAULIO and associated metabolic encephalopathy. Patient continues to states that she feels "fuzzy". However after asking several memory question she seems much improved than before and may be discounting how improved she really is. She was able to tell me the month. She spelled WORLD backwards and repeated my 7 numbers accurately. She identified the Presidents going backwards to [place]. She notes that the main issue right now is stomach ache. She is still depressed but not to where she's having any SI/HI/AH/VH. No euphoria or paranoia. No significant changes in her dispo issues. She does describe some trouble with her sleep. Mental Status Exam - Vital signs Last Vital Signs Temp 98.2 F 10/04/16 09:08 Pulse 107 H 10/04/16 09:08 Resp 20 10/04/16 09:08 BP 164/97 10/04/16 09:08 Pulse Ox 96 10/04/16 09:08 - Exam Orientation: time, place, person Affect: other (constricted) Mood: other (depressed) Thought Process: Intact Perceptions: none Speech: normal rate and pattern Concentration: distractible Motor activity: normal Level of consciousness: alert Memory: Intact Sleep Symptoms: Difficulty Falling Asleep Interaction: cooperative Mini mental status exam(if necessary): 24-30 Assessment and Plan This is a 60 year old female who was [facility] after treatment of dehydration, sepsis, BRAULIO and associated metabolic encephalopathy. Currently patient's cognition has begun improving. She denies any SI/HI.AH/VH. Her depression is the same. She is beginning to improve. Sleep: added trazodone 50mg po bedtime for sleep- discussed side effects, risks , and benefits. depression- continue prozac. Patient will require outpatient therapy.
--- NOTE | 2016-10-04 16:33 | Post Operative Note ---
Pre-op diagnosis: acute renal failure/resolved Post-op diagnosis: same Findings: Catheter came out in its entirety. Excellent hemostasis. Procedure: Removal of the right internal jugular tunneled dialysis catheter. Anesthesia: local Surgeon: SANDY SHEA Estimated blood loss: none Pathology: none Condition: stable Disposition: floor (right chest was prepped and draped in usual sterile fashion. The exit site was infiltrated with lidocaine. Long tonsil clamp was used to dissect the cuff. Catheter came out without problems. Patient tolerated procedure well.)
--- NOTE | 2016-10-04 16:47 | Progress Note ---
Assessment and Plan 60 y.o. morbidly obese female with acute metabolic encephalopathy secondary to sepsis; gait dysfunction secondary to prolonged hospital course; acute renal failure requiring initiation of hemodialysis - acute metabolic encephalopathy- continues with memory and problem solving deficits - unsteady gait- Annelise for gait due to LLE weakness and foot drop - acute renal failure- resolved; BUN normalizing, Cr WNL; Nephrology following; HD discontinued, tapering off steroids; permcath removed on today - MS- Tecfidera - Anxiety/depression- prozac, xanax; Psych following; less tearful episodes - HTN- elevated this AM; will increase atenolol for better control - leukocytosis- resolved - Meredith UTI- diflucan - DVT px- heparin - team conference held on today- Xander for eating; s/u for grooming, UB dressing ; Annelise for bathing; modA for LB dressing; min-modA for toilet and shower transfers; maxA for toileting; supervision for bed mobility and wheelchair mobility; ambulating 50 feet Annelise with RW; modA for problem solving, maxA for memory. Barriers- depression, motivation, incontinence. Pt will require 24 hour supervision/assistance within the home at discharge. - Patient Problems (1) Acute metabolic encephalopathy Current Visit: Yes Status: Acute (2) Unsteady gait Current Visit: Yes Status: Acute (3) Multiple sclerosis Current Visit: Yes Status: Acute (4) Anxiety and depression Current Visit: Yes Status: Acute (5) HTN (hypertension) Current Visit: Yes Status: Acute Qualifiers: Hypertension type: essential hypertension Qualified Code(s): I10 - Essential (primary) hypertension (6) Morbid obesity due to excess calories Current Visit: Yes Status: Acute (7) Left foot drop Current Visit: Yes Status: Acute (8) Meredith UTI Current Visit: Yes Status: Acute Subjective Date of service: 10/04/16 Principal diagnosis: acute metabolic encephalopathy Interval history: Pt seen this AM in OT gym, F/U, IPR course, acute metabolic encephalopathy. Remains incontinent at times with bowel and bladder; denies any pain; remains intermittently tearful Objective - Constitutional Vitals: Vital Signs - 12hr 10/04/16 10/04/16 08:45 09:08 Temperature 98.2 F Pulse Rate 107 H Pulse Rate [ 107 H Right Brachial] Respiratory 20 Rate Blood Pressure 164/97 Blood Pressure 164/97 [Left Arm] O2 Sat by Pulse 96 Oximetry General appearance: Present: no acute distress, obese - EENT Eyes: EOM intact ENT: hearing intact - Neck Neck: supple, normal ROM - Respiratory Respiratory effort: normal Extremity abnormal: edema - Gastrointestinal General gastrointestinal: Present: soft, non-tender - Integumentary Integumentary: clear - Musculoskeletal Musculoskeletal: left sided weakness (LLE) - Neurologic Neurologic: CNII-XII intact - Psychiatric Psychiatric: cooperative - Labs CBC & Chem 7: 10/04/16 04:30 10/02/16 04:41 Labs: Abnormal lab results 10/04/16 Range/Units 04:30 RBC 2.56 L (3.65-5.03) M/mm3 Hgb 7.9 L (10.1-14.3) gm/dl Hct 23.9 L (30.3-42.9) % Lymphocytes % (Manual) 12.0 L (13.4-35.0) % Basophils % (Manual) 2.0 H (0.0-1.8) % Lymphocytes # (Manual) 1.0 L (1.2-5.4) K/mm3 Basophils # (Manual) 0.2 H (0.0-0.1) K/mm3
[2016-10-04] MEDS: DESYREL PO SCH (22:11)
[2016-10-04] MEDS: TYLENOL PO PRN (22:11)
--- NOTE | 2016-10-05 08:42 | Progress Note ---
Assessment and Plan Impression: 1.Acute kidney injury secondary to ATN vs AIN --Urine eos negative, C3 low, hepatitis panel negative, SPEP negative, ROSSY negative; renal ultrasound is normal . 2. s/p Sepsis 3. s/p Ecoli UTI 4. s/p Transaminitis 5.Metabolic acidosis - mild 6.Thrombocytopenia 7.Hx of influenza (Sep 05) per records 8.Metabolic acidosis Recommendations: 1. Renal function is stable off dialysis, follow up am lytes 2. s/p permcath removal 3. Continue hydrocortisone BID - gradually wean 20m bid 4. Avoid nephrotoxic agents 5. Dose medications for renal function 6. AM labs ordered Subjective Date of service: 10/05/16 Principal diagnosis: acute metabolic encephalopathy Interval history: resting in bed today Objective - Exam Narrative Exam: General appearance: well-developed, well-nourished EENT: ATNC Respiratory: Present: Decreased Breath Sounds Cardiology: regular, S1S2 Gastrointestinal: normal, no tenderness, no distended Integumentary: no rash Neurologic: alert and oriented x3 Psychiatric: cooperative - Vital Signs Vital signs: Vital Signs - 12hr 10/04/16 10/04/16 10/04/16 22:00 22:11 23:11 Temperature Pulse Rate [ 99 H Apical] Pulse Rate [ Right Brachial] Respiratory 20 20 Rate Respiratory 21 Rate [Back] Blood Pressure [Right Arm] O2 Sat by Pulse 98 Oximetry 10/05/16 08:00 Temperature 98.7 F Pulse Rate [ Apical] Pulse Rate [ 96 H Right Brachial] Respiratory 18 Rate Respiratory Rate [Back] Blood Pressure 170/89 [Right Arm] O2 Sat by Pulse 99 Oximetry - Lab 10/04/16 04:30 10/02/16 04:41 Most recent lab results Calcium 7.9 mg/dL (8.4-10.2) L 10/02/16 04:41
[2016-10-05] MEDS: PERCOCET 5/325 PO PRN ×2 (09:55→22:01)
[2016-10-05] MEDS: TECFIDERA 240 MG PO SCH ×2 (09:57→22:05)
[2016-10-05] MEDS: CORTEF PO SCH ×2 (09:58→22:01)
[2016-10-05] MEDS: DIFLUCAN PO SCH (09:59)
[2016-10-05] MEDS: TENORMIN PO SCH (10:00)
[2016-10-05] MEDS: FISH OIL PO SCH ×2 (10:00→22:01)
[2016-10-05] MEDS: NYSTOP TP SCH ×2 (10:01→22:05)
[2016-10-05] MEDS: PROzac PO SCH (10:01)
[2016-10-05] MEDS: HEPARIN SUB-Q SCH ×2 (10:02→22:03)
--- NOTE | 2016-10-05 14:50 | Progress Note ---
Subjective - Reason for Consult Consult date: 10/05/16 Reason for consult: psychiatric follow up - Chief Complaint Chief complaint: This is a 60 year old female who was transferred to [facility] from [facility] after treatment of dehydration, sepsis, BRAULIO and associated metabolic encephalopathy. She states she has gone through numerous mental tests today and does not think she can do anymore. She carried on a logical conversation without becoming tearful. She is still depressed but not to where she's having any SI/HI/AH/VH. No euphoria or paranoia. No significant changes in her dispo issues. She continues to complain of difficulty going to sleep. Mental Status Exam - Vital signs Last Vital Signs Temp 98.7 F 10/05/16 08:00 Pulse 96 H 10/05/16 10:00 Resp 18 10/05/16 08:00 BP 170/89 10/05/16 10:00 Pulse Ox 99 10/05/16 08:00 - Exam Narrative exam: She discussed having a difficult time organizing her thoughts but improved on exam. Her thought process is linear The patient notes that their mood is: sad. Affect is labile, improving. Patient relates sleep is: inconsistent. Energy levels are: low. Appetite is: stable Anxiety: present and related to social circumstance Appearance: Patient appears older than stated age, non-ambulatory Behavior: cooperative Cooperation: fair Insight/Judgment: limited Level of cognition: reduced Level of consciousness: reduced awareness of surrounding related to time Knowledge: unable to assess Speech: soft and slow Thought processes: linear Thought content: ruminative Perceptions: denies Assessment and Plan Currently, she is manifesting the following cognitive deficits: explicit memory , working memory, attentional control, reasoning, problem solving, and planning. She remains impaired with respect to the above mentioned cognitive domains Impression: Mild to Moderate Reversible Cognitive Impairment related to recent Metabolic Encephalopathy Trazodone 50mg hs was not effective for sleep Recommendation: - Continue current management per. Dr. Martin - We will follow to assess her response to treatment and to periodically reassess her cognitive status - increase trazodone to 100mg at bedtime.
--- NOTE | 2016-10-05 17:28 | Progress Note ---
Assessment and Plan 60 y.o. morbidly obese female with acute metabolic encephalopathy secondary to sepsis; gait dysfunction secondary to prolonged hospital course; acute renal failure requiring initiation of hemodialysis - acute metabolic encephalopathy- continues with memory and problem solving deficits - unsteady gait- Annelise for gait due to LLE weakness and foot drop; requires frequent rest breaks during gait training - MS- Tecfidera - Anxiety/depression- prozac, xanax; less tearful episodes - HTN- elevated this AM; admits to being anxious in the mornings in anticipation of therapies - Meredith UTI- diflucan - DVT px- heparin - labs in AM - Patient Problems (1) Acute metabolic encephalopathy Current Visit: Yes Status: Acute (2) Unsteady gait Current Visit: Yes Status: Acute (3) Multiple sclerosis Current Visit: Yes Status: Acute (4) Anxiety and depression Current Visit: Yes Status: Acute (5) HTN (hypertension) Current Visit: Yes Status: Acute Qualifiers: Hypertension type: essential hypertension Qualified Code(s): I10 - Essential (primary) hypertension (6) Morbid obesity due to excess calories Current Visit: Yes Status: Acute (7) Left foot drop Current Visit: Yes Status: Acute (8) Meredith UTI Current Visit: Yes Status: Acute Subjective Date of service: 10/05/16 Principal diagnosis: acute metabolic encephalopathy Interval history: Pt seen this AM with PT, F/U, IPR course, acute metabolic encephalopathy. No new complaints on today; moving LLE more Objective - Constitutional Vitals: Vital Signs - 12hr 10/05/16 10/05/16 10/05/16 08:00 10:00 16:30 Temperature 98.7 F Pulse Rate 96 H Pulse Rate [ 96 H 80 Right Brachial] Respiratory 18 20 Rate Blood Pressure 170/89 Blood Pressure 170/89 148/90 [Right Arm] O2 Sat by Pulse 99 97 Oximetry General appearance: Present: no acute distress, obese, other (seated in WC) - EENT Eyes: EOM intact ENT: hearing intact - Neck Neck: supple, normal ROM - Respiratory Respiratory effort: normal - Integumentary Integumentary: clear - Musculoskeletal Musculoskeletal: left sided weakness (LLE- 2/5 knee flexion/extension, trace ankle DF) - Neurologic Neurologic: CNII-XII intact - Psychiatric Psychiatric: appropriate mood/affect, cooperative - Allied health notes Allied health notes reviewed: PT (Annelise for gait), OT (modA for memory; Annelise for wheelchair mobility) - Labs CBC & Chem 7: 10/04/16 04:30 10/02/16 04:41
[2016-10-05] MEDS: DESYREL PO SCH (22:00)
[2016-10-06 06:41] LABS: Anion Gap 17 mmol/L; BUN/Creatinine Ratio 18.75; Blood Urea Nitrogen 15 mg/dL (7-17); Carbon Dioxide 25 mmol/L (22-30); Chloride 104.7 mmol/L (98-107); Glucose 89 mg/dL (65-100); Sodium 143 mmol/L (137-145)
[2016-10-06 06:47] LABS: Hematocrit 24.1 % (30.3-42.9); Hemoglobin 7.9 gm/dl (10.1-14.3); Mean Corpuscular HGB Conc 33 % (30-34); Mean Corpuscular Hemoglobin 31 pg (28-32); Mean Corpuscular Volume 94 fl (79-97); Red Blood Count 2.55 M/mm3 (3.65-5.03); Red Cell Distribution Width 14.9 % (13.2-15.2); White Blood Count 8.3 K/mm3 (4.5-11.0)
[2016-10-06 07:42] LABS: Platelet Count 183 K/mm3 (140-440)
[2016-10-06] MEDS: PROzac PO SCH (11:25)
[2016-10-06] MEDS: TENORMIN PO SCH (11:25)
[2016-10-06] MEDS: FISH OIL PO SCH ×2 (11:26→23:21)
[2016-10-06] MEDS: PERCOCET 5/325 PO PRN (11:26)
[2016-10-06] MEDS: DIFLUCAN PO SCH (11:26)
[2016-10-06] MEDS: HEPARIN SUB-Q SCH ×2 (11:27→23:59)
--- NOTE | 2016-10-06 13:48 | Progress Note ---
Assessment and Plan 60 y.o. morbidly obese female with acute metabolic encephalopathy secondary to sepsis; gait dysfunction secondary to prolonged hospital course; acute renal failure requiring initiation of hemodialysis - acute metabolic encephalopathy- improving memory with ROADS SUPERINTENDENT tasks - unsteady gait- continue gait training; ambulated 35 feet on evaluation; now ambulating up to 60 - MS- Tecfidera - Anxiety/depression- prozac, xanax - HTN- atenolol increased on yesterday; follow - Meredith UTI- diflucan until 10/08 - DVT px- heparin - labs reviewed- anemia stable; acute renal failure resolved, BUN/Cr WNL - bowel/bladder incontinence- toileting schedule; pt educated about calling for assistance - Patient Problems (1) Acute metabolic encephalopathy Current Visit: Yes Status: Acute (2) Unsteady gait Current Visit: Yes Status: Acute (3) Multiple sclerosis Current Visit: Yes Status: Acute (4) Anxiety and depression Current Visit: Yes Status: Acute (5) HTN (hypertension) Current Visit: Yes Status: Acute Qualifiers: Hypertension type: essential hypertension Qualified Code(s): I10 - Essential (primary) hypertension (6) Morbid obesity due to excess calories Current Visit: Yes Status: Acute (7) Left foot drop Current Visit: Yes Status: Acute (8) Meredith UTI Current Visit: Yes Status: Acute (9) Bowel and bladder incontinence Current Visit: Yes Status: Acute Subjective Date of service: 10/06/16 Principal diagnosis: acute metabolic encephalopathy Interval history: Pt seen this AM in room, F/U, IPR course, acute metabolic encephalopathy. no complaints overnight; reports bowel accident Objective - Constitutional Vitals: Vital Signs - 12hr 10/06/16 08:25 Temperature 97.9 F Pulse Rate [ 89 Right Brachial] Respiratory 20 Rate Blood Pressure 155/83 [Left Arm] O2 Sat by Pulse 99 Oximetry General appearance: Present: no acute distress, obese - EENT Eyes: EOM intact ENT: hearing intact - Neck Neck: supple - Respiratory Respiratory effort: normal Extremity abnormal: edema (unchanged) - Musculoskeletal Musculoskeletal: generalized weakness (BLE) - Neurologic Neurologic: CNII-XII intact - Psychiatric Psychiatric: appropriate mood/affect, cooperative - Allied health notes Allied health notes reviewed: nursing (supervision for grooming and UB dressing ; modA for LB dressing and bathing), PT (Annelise for gait) - Labs CBC & Chem 7: 10/06/16 04:08 10/06/16 04:08 Labs: Abnormal lab results 10/06/16 10/06/16 Range/Units 04:08 04:08 RBC 2.55 L (3.65-5.03) M/mm3 Hgb 7.9 L (10.1-14.3) gm/dl Hct 24.1 L (30.3-42.9) % Calcium 8.0 L (8.4-10.2) mg/dL
[2016-10-06] MEDS: NYSTOP TP SCH ×2 (14:50→23:35)
[2016-10-06] MEDS: TECFIDERA 240 MG PO SCH ×3 (14:50→23:34)
[2016-10-06] MEDS: CORTEF PO SCH ×2 (14:51→23:22)
--- NOTE | 2016-10-06 15:51 | Progress Note ---
Subjective - Reason for Consult Consult date: 10/06/16 Reason for consult: Psychiatry Follow-up - Chief Complaint Chief complaint: "I look forward to regaining my memory back." Mental Status Exam - Vital signs Last Vital Signs Temp 97.9 F 10/06/16 08:25 Pulse 89 10/06/16 11:25 Resp 20 10/06/16 08:25 BP 155/83 10/06/16 11:25 Pulse Ox 99 10/06/16 08:25 - Exam Narrative exam: This is a 60 year old female who was transferred to [facility] from [facility] after treatment of dehydration, sepsis, BRAULIO and associated metabolic encephalopathy. Upon arrival to patient room, she was watching TV. She was pleasant during interview, but became emotional when she spoke about how her ex- her. Patient rated her depression a 7 out of 10, with 10 being the worse and denied AVH's and SI/HIs at this time. Orientation: time, place, person Affect: other (Congruent) Mood: other ("I getting better") Thought content: other (Denies AVH's) Thought Process: Intact Perceptions: none Speech: other (Delayed Responses) Concentration: focused, other Motor activity: other (Sitting in wheelchair) Level of consciousness: alert Memory: Recent Impaired Sleep Symptoms: None ("I got over 7 hours last night") Interaction: cooperative (Patient really tried to answer all the questions correct. Become emotional when her answered were wrong.) Mini mental status exam(if necessary): 18-23 Assessment and Plan Impression: Mild to Moderate Reversible Cognitive Impairment related to recent Metabolic Encephalopathy. Patient acknowledged getting more sleep last night. Recommendation: - Continue current management per. Dr. Martin - We will follow to assess her response to treatment and to periodically reassess her cognitive status - Continue Trazodone 50 mg PO HS
[2016-10-06] MEDS: DESYREL PO SCH (23:23)
[2016-10-07] MEDS: PROzac PO SCH (10:34)
[2016-10-07] MEDS: TENORMIN PO SCH (10:34)
[2016-10-07] MEDS: CORTEF PO SCH ×2 (10:35→23:48)
[2016-10-07] MEDS: DIFLUCAN PO SCH (10:35)
[2016-10-07] MEDS: FISH OIL PO SCH ×2 (10:35→23:51)
[2016-10-07] MEDS: HEPARIN SUB-Q SCH ×2 (10:36→23:48)
[2016-10-07] MEDS: TECFIDERA 240 MG PO SCH ×2 (10:44→15:43)
[2016-10-07] MEDS: NYSTOP TP SCH ×2 (10:47→23:56)
[2016-10-07] MEDS: PERCOCET 5/325 PO PRN (13:06)
--- NOTE | 2016-10-07 16:36 | Progress Note ---
Assessment and Plan Impression: 1.Acute kidney injury secondary to ATN vs AIN --Urine eos negative, C3 low, hepatitis panel negative, SPEP negative, ROSSY negative; renal ultrasound is normal . 2. s/p Sepsis 3. s/p Ecoli UTI 4. s/p Transaminitis 5.Metabolic acidosis - mild 6.Thrombocytopenia 7.Hx of influenza (Sep 05) per records 8.Metabolic acidosis Recommendations: 1. Renal function is stable off dialysis, cr is 0.8 and stable 2. s/p permcath removal 3. Continue hydrocortisone BID - gradually wean 20m bid 4. Avoid nephrotoxic agents 5. Dose medications for renal function 6. AM labs ordered Subjective Date of service: 10/07/16 Principal diagnosis: acute metabolic encephalopathy Interval history: resting in bed today Objective - Exam Narrative Exam: General appearance: well-developed, well-nourished EENT: ATNC Respiratory: Present: Decreased Breath Sounds Cardiology: regular, S1S2 Gastrointestinal: normal, no tenderness, no distended Integumentary: no rash Neurologic: alert and oriented x3 Psychiatric: cooperative - Vital Signs Vital signs: Vital Signs - 12hr 10/07/16 10/07/16 10/07/16 07:36 10:00 10:34 Temperature 99.2 F Pulse Rate 88 Pulse Rate [ 88 88 Right Brachial] Respiratory 18 Rate Blood Pressure 145/92 Blood Pressure 145/92 [Right Arm] O2 Sat by Pulse 98 98 Oximetry - Lab 10/06/16 04:08 10/06/16 04:08 Most recent lab results Calcium 8.0 mg/dL (8.4-10.2) L 10/06/16 04:08
--- NOTE | 2016-10-07 16:37 | Progress Note ---
Assessment and Plan 60 y.o. morbidly obese female with acute metabolic encephalopathy secondary to sepsis; gait dysfunction secondary to prolonged hospital course; acute renal failure requiring initiation of hemodialysis - acute metabolic encephalopathy- ongoing memory tasks with DESIGNER WRITER and OT - unsteady gait- continue gait training with PT - MS- Tecfidera - Anxiety/depression- prozac; xanax discontinued per Bob trazadone added - HTN- stable - Meredith UTI- treated - DVT px- heparin - bowel/bladder incontinence- toileting schedule; follow diarrhea - recheck labs on Monday - Patient Problems (1) Acute metabolic encephalopathy Current Visit: Yes Status: Acute (2) Unsteady gait Current Visit: Yes Status: Acute (3) Multiple sclerosis Current Visit: Yes Status: Acute (4) Anxiety and depression Current Visit: Yes Status: Acute (5) HTN (hypertension) Current Visit: Yes Status: Acute Qualifiers: Hypertension type: essential hypertension Qualified Code(s): I10 - Essential (primary) hypertension (6) Morbid obesity due to excess calories Current Visit: Yes Status: Acute (7) Left foot drop Current Visit: Yes Status: Acute (8) Meredith UTI Current Visit: Yes Status: Acute (9) Bowel and bladder incontinence Current Visit: Yes Status: Acute Subjective Date of service: 10/07/16 Principal diagnosis: acute metabolic encephalopathy Interval history: Pt seen on today between therapies, F/U, IPR course, acute metabolic encephalopathy. Continues with intermittent episodes of incontinence; multiple bowel accidents in last 24 hours Objective - Constitutional Vitals: Vital Signs - 12hr 10/07/16 10/07/16 10/07/16 07:36 10:00 10:34 Temperature 99.2 F Pulse Rate 88 Pulse Rate [ 88 88 Right Brachial] Respiratory 18 Rate Blood Pressure 145/92 Blood Pressure 145/92 [Right Arm] O2 Sat by Pulse 98 98 Oximetry General appearance: Present: no acute distress, obese - EENT Eyes: EOM intact ENT: hearing intact - Neck Neck: supple, normal ROM - Respiratory Respiratory effort: normal Respiratory: bilateral: CTA - Cardiovascular Rhythm: regular Heart Sounds: Present: S1 & S2 - Gastrointestinal General gastrointestinal: Present: soft, non-tender, non-distended, normal bowel sounds - Integumentary Integumentary: clear - Musculoskeletal Musculoskeletal: left sided weakness (LLE) - Neurologic Neurologic: CNII-XII intact - Psychiatric Psychiatric: appropriate mood/affect, cooperative - Allied health notes Allied health notes reviewed: PT (modA for transfers), OT (Independent with WC mobility) - Labs CBC & Chem 7: 10/06/16 04:08 10/06/16 04:08
--- NOTE | 2016-10-07 19:46 | Progress Note ---
Subjective - Reason for Consult Reason for consult: psych management - Chief Complaint Chief complaint: This is a 60 year old female who was transferred to [facility] from [facility] after treatment of dehydration, sepsis, BRAULIO and associated metabolic encephalopathy. Patient presents with slight worsening cognitive issues. She names the seven numbers I asked her to repeat. She couldn't remember the date or place though. She knew Trump then Obama. She spelled WORLD backwards as "DLWORLD". She notes that she isn't as depressed as before. She denies any SI/HI/AH/VH. Main issue she recalls is not having quality sleep. Mental Status Exam - Vital signs Last Vital Signs Temp 98.0 F 10/07/16 16:45 Pulse 86 10/07/16 16:45 Resp 20 10/07/16 16:45 BP 138/84 10/07/16 16:45 Pulse Ox 100 10/07/16 16:45 - Exam Orientation: person Affect: normal, other Mood: other ("fair") Thought content: other (impoverished) Thought Process: Circumstantial Perceptions: none Speech: normal rate and pattern Concentration: distractible Level of consciousness: alert Memory: Recent Impaired, Remote Impaired Interaction: cooperative Assessment and Plan This is a 60 year old female who was transferred to [facility] from [facility] after treatment of dehydration, sepsis, BRAULIO and associated metabolic encephalopathy. Currently patient's cognition is slightly worse. She denies any SI/HI.AH/VH. Her depression is the same. Upon entering her room she was lying in bed with the blinds closed and lights off. I discussed with her the importance of proper sleep wake cycle and keeping the lights on and sunlight into the room during the daytime- which plays a role with her cognition. Sleep: continue with trazodone as directed depression- continue prozac. Patient will require outpatient therapy when discharged.
[2016-10-07] MEDS: DESYREL PO SCH (23:47)
[2016-10-08] MEDS: TENORMIN PO SCH (10:18)
[2016-10-08] MEDS: FISH OIL PO SCH ×2 (10:18→21:16)
[2016-10-08] MEDS: PROzac PO SCH (10:19)
[2016-10-08] MEDS: CORTEF PO SCH ×2 (10:20→21:16)
[2016-10-08] MEDS: TECFIDERA 240 MG PO SCH ×3 (10:20→21:21)
[2016-10-08] MEDS: HEPARIN SUB-Q SCH ×2 (10:21→21:11)
[2016-10-08] MEDS: NYSTOP TP SCH ×2 (10:26→21:19)
[2016-10-08] MEDS: PERCOCET 5/325 PO PRN ×2 (10:46→17:17)
--- NOTE | 2016-10-08 12:58 | Progress Note ---
Subjective - Reason for Consult Consult date: 10/08/16 Reason for consult: psychiatric follow up - Chief Complaint Chief complaint: This is a 60 year old female who was transferred to [facility] from [facility] after treatment of dehydration, sepsis, BRAULIO and associated metabolic encephalopathy. She denies any SI/HI/AH/VH. Main issue she recalls is not having quality sleep , trouble with sleep initiation. She reports one night with improved sleep. Mental Status Exam - Vital signs Last Vital Signs Temp 99.9 F H 10/08/16 08:00 Pulse 84 10/08/16 10:18 Resp 20 10/08/16 08:00 BP 150/85 10/08/16 10:18 Pulse Ox 98 10/08/16 08:00 - Exam Narrative exam: She discussed having a difficult time with short term memory. Her thought process is linear The patient notes that their mood is: "fair" "always depressed a little bit" Affect is significantly less labile. Patient relates sleep is: inconsistent. Energy levels are: low. Appetite is: stable Anxiety: present and related to social circumstance Appearance: Patient appears older than stated age, non-ambulatory Behavior: cooperative Cooperation: fair Insight/Judgment: limited Level of cognition: reduced Level of consciousness: reduced awareness of surrounding related to time Knowledge: unable to assess Speech: soft and slow Thought processes: linear Thought content: ruminative Perceptions: denies Assessment and Plan Impression: 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 Dr. Martin - We will follow to assess her response to treatment and to periodically reassess her cognitive status - Increase trazodone to 100mg at bedtime.
--- NOTE | 2016-10-08 14:50 | Progress Note ---
Assessment and Plan Impression: 1.Acute kidney injury secondary to ATN vs AIN --Urine eos negative, C3 low, hepatitis panel negative, SPEP negative, ROSSY negative; renal ultrasound is normal . 2. s/p Sepsis 3. s/p Ecoli UTI 4. s/p Transaminitis 5.Metabolic acidosis - mild 6.Thrombocytopenia 7.Hx of influenza (Sep 05) per records 8.Metabolic acidosis Recommendations: 1. Renal function is stable off dialysis, cr is stable 2. s/p permcath removal 3. Continue hydrocortisone BID - gradually wean 20m bid 4. Avoid nephrotoxic agents Subjective Date of service: 10/08/16 Principal diagnosis: acute metabolic encephalopathy Interval history: Patient is comfortable. Denies any shortness of breath. Continues to have leg swelling Objective - Vital Signs Vital signs: Vital Signs - 12hr 10/08/16 10/08/16 10/08/16 08:00 10:00 10:18 Temperature 99.9 F H Pulse Rate 84 Pulse Rate [ 84 88 Right Brachial] Respiratory 20 Rate Blood Pressure 150/85 Blood Pressure 150/85 [Left Arm] O2 Sat by Pulse 98 98 Oximetry - General Appearance General appearance: well-developed, well-nourished, appears stated age EENT: PERRL, mucous membranes moist Neck: no JVD, no thyromegaly, no carotid bruit, supple Respiratory: Present: Clear to Ascultation Cardiology: regular, normal heart rate, S1S2, no murmurs Gastrointestinal: normal, normoactive bowel sounds Integumentary: other (1+ pitting edema bilaterally) - Lab 10/06/16 04:08 10/06/16 04:08 Most recent lab results Calcium 8.0 mg/dL (8.4-10.2) L 10/06/16 04:08
[2016-10-08] MEDS: DESYREL PO SCH (20:49)
[2016-10-09] MEDS: PROzac PO SCH (09:19)
[2016-10-09] MEDS: FISH OIL PO SCH ×2 (09:20→22:50)
[2016-10-09] MEDS: TENORMIN PO SCH (09:21)
[2016-10-09] MEDS: CORTEF PO SCH ×2 (09:21→22:49)
[2016-10-09] MEDS: HEPARIN SUB-Q SCH ×2 (09:22→22:56)
[2016-10-09] MEDS: TECFIDERA 240 MG PO SCH ×2 (09:23→22:53)
[2016-10-09] MEDS: PERCOCET 5/325 PO PRN (09:26)
[2016-10-09] MEDS: NYSTOP TP SCH ×2 (09:28→23:56)
--- NOTE | 2016-10-09 13:06 | Progress Note ---
Subjective - Reason for Consult Consult date: 10/09/16 Reason for consult: Psychiatry Follow-up - Chief Complaint Chief complaint: "I am ready to get better" This is a 60 year old female who was transferred to [facility] from [facility] after treatment of dehydration, sepsis, BRAULIO and associated metabolic encephalopathy. She denies any SI/HI/AH/VH, but rate her depression and anxiety 8/10 with 10 being the worse. Mental Status Exam - Vital signs Last Vital Signs Temp 99.3 F 10/08/16 20:00 Pulse 82 10/09/16 09:21 Resp 20 10/09/16 08:00 BP 142/91 10/09/16 09:21 Pulse Ox 97 10/09/16 08:00 - Exam Orientation: time, place, person Affect: normal Mood: other ("Depressed") Thought content: other (None) Thought Process: Intact Perceptions: none Speech: normal rate and pattern Concentration: focused Motor activity: other (Lying in the bed) Level of consciousness: alert Memory: Recent Impaired Sleep Symptoms: Insomnia, None ("Going to sleep") Interaction: cooperative, pleasant Mini mental status exam(if necessary): 18-23 Assessment and Plan Impression: 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 Dr. Martin - We will follow to assess her response to treatment and to periodically reassess her cognitive status. - Increased Trazodone to 100mg at bedtime for sleep. - Increased Prozac to 30 mg PO daily for depression.
[2016-10-09] MEDS: DESYREL PO SCH (22:48)
[2016-10-10 05:22] LABS: Hematocrit 25.4 % (30.3-42.9); Hemoglobin 8.4 gm/dl (10.1-14.3); Mean Corpuscular HGB Conc 33 % (30-34); Mean Corpuscular Hemoglobin 31 pg (28-32); Mean Corpuscular Volume 94 fl (79-97); Platelet Count 202 K/mm3 (140-440); Red Blood Count 2.69 M/mm3 (3.65-5.03); Red Cell Distribution Width 15.8 % (13.2-15.2); White Blood Count 6.8 K/mm3 (4.5-11.0)
[2016-10-10 05:38] LABS: Anion Gap 16 mmol/L; BUN/Creatinine Ratio 22.85; Blood Urea Nitrogen 16 mg/dL (7-17); Calcium 8.4 mg/dL (8.4-10.2); Carbon Dioxide 25 mmol/L (22-30); Chloride 106.4 mmol/L (98-107); Glucose 97 mg/dL (65-100); Potassium 3.6 mmol/L (3.6-5.0); Sodium 144 mmol/L (137-145)
[2016-10-10] MEDS ORDERED: PROzac PO SCH (08:00)
[2016-10-10] MEDS: NYSTOP TP SCH ×2 (10:05→21:51)
[2016-10-10] MEDS: TECFIDERA 240 MG PO SCH ×2 (10:05→21:49)
[2016-10-10] MEDS: FISH OIL PO SCH ×2 (10:25→21:50)
[2016-10-10] MEDS: CORTEF PO SCH ×2 (10:26→21:50)
[2016-10-10] MEDS: TENORMIN PO SCH (10:27)
[2016-10-10] MEDS: HEPARIN SUB-Q SCH ×2 (10:37→22:24)
--- NOTE | 2016-10-10 10:42 | Progress Note ---
Assessment and Plan Impression: 1.Acute kidney injury secondary to ATN vs AIN --Urine eos negative, C3 low, hepatitis panel negative, SPEP negative, ROSSY negative; renal ultrasound is normal . 2. s/p Sepsis 3. s/p Ecoli UTI 4. s/p Transaminitis 5.Metabolic acidosis - mild 6.Thrombocytopenia 7.Hx of influenza (Sep 05) per records 8.Metabolic acidosis Recommendations: 1. Renal function is stable off dialysis, cr is stable 2. s/p permcath removal 3. Slowly wean her off of oral steroids 4. Avoid nephrotoxic agents Subjective Date of service: 10/10/16 Principal diagnosis: acute metabolic encephalopathy Interval history: Patient is comfortable. Denies any shortness of breath. Continues to have leg swelling Objective - Vital Signs Vital signs: Vital Signs - 12hr 10/10/16 08:00 Temperature 98.9 F Pulse Rate [ 84 Left Brachial] Respiratory 18 Rate Blood Pressure 160/94 [Left Arm] - General Appearance General appearance: well-developed, well-nourished, appears stated age EENT: PERRL, mucous membranes moist Neck: no JVD, no thyromegaly, no carotid bruit, supple Respiratory: Present: Clear to Ascultation Cardiology: regular, normal heart rate, S1S2, no murmurs Gastrointestinal: normal, normoactive bowel sounds Integumentary: no rash, warm and dry, other (1+ edema) - Lab 10/10/16 04:37 10/10/16 04:37 Most recent lab results Calcium 8.4 mg/dL (8.4-10.2) 10/10/16 04:37
--- NOTE | 2016-10-10 11:37 | Progress Note ---
Subjective - Reason for Consult Consult date: 10/10/16 Reason for consult: Psychiatry Follow-up - Chief Complaint Chief complaint: "I am not getting enough rest" This is a 60 year old female who was transferred to [facility] from [facility] after treatment of dehydration, sepsis, BRAULIO and associated metabolic encephalopathy. Patient discussed with me that her sleep is still a problem. We discussed turning off the TV when she is ready to go to bed and try not to snack late at night. She states that her anxiety is elevated at night and this interferes with her starting sleep. Also, I assessed he remote and recent memory. She was able to recall former Presidents of the [place] and her . She remembered 2/3 objects when asked about them. She was not able to count backward by 7 starting with 100, but she spelled WORLD backwards correctly. She denies SI/HI's and AVH's at this time. Mental Status Exam - Vital signs Last Vital Signs Temp 98.9 F 10/10/16 08:00 Pulse 84 10/10/16 10:27 Resp 18 10/10/16 08:00 BP 160/94 10/10/16 08:00 Pulse Ox 99 10/09/16 20:00 - Exam Orientation: time, place, person Affect: normal, other Mood: other ("Just sleepy") Thought content: other (None) Thought Process: Intact Perceptions: none Speech: normal rate and pattern Concentration: focused Motor activity: other (Lying in bed) Level of consciousness: alert Memory: Intact Interaction: cooperative, pleasant Mini mental status exam(if necessary): 24-30 Assessment and Plan Impression: Mild to Moderate Reversible Cognitive Impairment related to recent Metabolic Encephalopathy Plan: - Continue current management per. Dr. Martin - We will follow to assess her response to treatment and to periodically reassess her cognitive status. - Continue Trazodone 100mg PO at bedtime for sleep. - Continue Prozac 30 mg PO daily for depression. - Discussed Black Box warning with patient reference both Trazodone and Prozac ( Suicidality)
[2016-10-10] MEDS: PROzac PO SCH ×2 (11:45)
--- NOTE | 2016-10-10 15:50 | Progress Note ---
Assessment and Plan 60 y.o. morbidly obese female with acute metabolic encephalopathy secondary to sepsis; gait dysfunction secondary to prolonged hospital course; acute renal failure requiring initiation of hemodialysis - acute metabolic encephalopathy- slowly improving cognitive deficits - unsteady gait- improving gait distance and level of assistance since admission - MS- [employer]; will F/U with Neurology as outpt - Anxiety/depression- prozac; trazadone; doses adjusted per Psych - HTN- stable; elevated at times due to anxiety - DVT px- heparin - bowel/bladder incontinence- toileting schedule; no further episodes of diarrhea reported - labs reviewed- anemia slightly improved; renal function remains within normal limits - Patient Problems (1) Acute metabolic encephalopathy Current Visit: Yes Status: Acute (2) Unsteady gait Current Visit: Yes Status: Acute (3) Multiple sclerosis Current Visit: Yes Status: Acute (4) Anxiety and depression Current Visit: Yes Status: Acute (5) HTN (hypertension) Current Visit: Yes Status: Acute Qualifiers: Hypertension type: essential hypertension Qualified Code(s): I10 - Essential (primary) hypertension (6) Morbid obesity due to excess calories Current Visit: Yes Status: Acute (7) Left foot drop Current Visit: Yes Status: Acute (8) Bowel and bladder incontinence Current Visit: Yes Status: Acute Subjective Date of service: 10/10/16 Principal diagnosis: acute metabolic encephalopathy Interval history: Pt seen in room on today, F/U, IPR course, acute metabolic encephalopathy. Brother and [id number] present for family training; all questions answered. Pt reports difficulty sleeping; trazadone dose noted to be increased by psych on yesterday Objective - Constitutional Vitals: Vital Signs - 12hr 10/10/16 10/10/16 08:00 10:27 Temperature 98.9 F Pulse Rate 84 Pulse Rate [ 84 Left Brachial] Respiratory 18 Rate Blood Pressure 160/94 [Left Arm] General appearance: Present: no acute distress, obese - EENT Eyes: EOM intact ENT: hearing intact - Neck Neck: supple, normal ROM - Respiratory Respiratory effort: normal Extremity abnormal: edema (unchanged BLE) - Musculoskeletal Musculoskeletal: left sided weakness (LLE, improving foot drop) - Neurologic Neurologic: CNII-XII intact - Psychiatric Psychiatric: appropriate mood/affect, cooperative - Allied health notes Allied health notes reviewed: PT (Annelise for gait; modA x2 for car transfers with family during FT), OT (totalA for toileting; Annelise for transfers) - Labs CBC & Chem 7: 10/10/16 04:37 10/10/16 04:37 Labs: Abnormal lab results 10/10/16 Range/Units 04:37 RBC 2.69 L (3.65-5.03) M/mm3 Hgb 8.4 L (10.1-14.3) gm/dl Hct 25.4 L (30.3-42.9) % RDW 15.8 H (13.2-15.2) %
[2016-10-10] MEDS: DESYREL PO SCH (21:50)
[2016-10-11 07:37] VITALS: BP 139/71
[2016-10-11] MEDS: TENORMIN PO SCH (09:04)
[2016-10-11] MEDS: FISH OIL PO SCH (09:04)
[2016-10-11] MEDS: PROzac PO SCH ×2 (09:04→09:08)
[2016-10-11] MEDS: CORTEF PO SCH (09:05)
[2016-10-11] MEDS: TECFIDERA 240 MG PO SCH (09:07)
[2016-10-11] MEDS: NYSTOP TP SCH (09:10)
[2016-10-11] MEDS: PERCOCET 5/325 PO PRN (09:13)
[2016-10-11] MEDS: HEPARIN SUB-Q SCH (09:14)
--- NOTE | 2016-10-11 11:39 | Discharge Summary ---
Providers - Providers Date of Admission: 09/22/16 13:54 Date of discharge: 10/11/16 Attending physician: ANEUDY GERARDO 09/22/16 14:29 Consult to Physician [CONS] Routine Consulting Provider: LOLITA LOERA Reason For Exam: acute renal failure; intermittent HD Place consult to:: Doctor's office Notified:: Dr Vazquez Phone number called:: [phone] Was contact made?: Yes If yes, spoke with:: Dr Vazquez Time called:: 16:00 Occupational Therapy Evaluate and Treat [CONS] Routine Comment: Reason For Exam: Debility, acute encephalopathy Physical Therapy Evaluation and Treat [CONS] Routine Comment: Reason For Exam: Debility, acute encephalopathy Speech Therapy Evaluation and Treat [CONS] Routine Reason For Exam: Debility, acute encephalopathy 09/27/16 12:58 Consult to Mental Health [CONS] Routine Reason For Exam: depression/anxiety Place consult to:: Karo Notified:: Jennifer Phone number called:: [phone] Was contact made?: Yes If yes, spoke with:: Jennifer Time called:: 16:00 10/01/16 06:47 Consult to Physician [CONS] Routine Consulting Provider: LORENZO BURCH Reason For Exam: permcath removal Place consult to:: DR HERNANDEZ Notified:: DR HERNANDEZ Phone number called:: [phone] Was contact made?: Yes If yes, spoke with:: AMARJIT Time called:: 09:54 Primary care physician: Dr. Karla Loera Hospitalization Reason for admission: Metabolic encephalopathy secondary to sepsis Condition: Stable Disposition: DISCHARGED TO HOME OR SELFCARE - Discharge Diagnoses (1) Acute metabolic encephalopathy Status: Acute (2) Unsteady gait Status: Acute (3) Multiple sclerosis Status: Acute (4) Anxiety and depression Status: Acute (5) HTN (hypertension) Status: Acute Qualifiers: Hypertension type: essential hypertension Qualified Code(s): I10 - Essential (primary) hypertension (6) Morbid obesity due to excess calories Status: Acute (7) Left foot drop Status: Acute (8) Bowel and bladder incontinence Status: Acute Core Measure Documentation - Palliative Care Palliative Care/ Comfort Measures: Not Applicable - Core Measures Any of the following diagnoses?: none Exam - Constitutional Vitals: Temp Pulse Resp BP Pulse Ox 99.8 F H 92 H 16 139/71 98 10/11/16 07:36 10/11/16 10:00 10/11/16 10:00 10/11/16 09:04 10/11/16 10:00 General appearance: Present: no acute distress, obese - EENT Eyes: Present: EOM intact ENT: hearing intact - Neck Neck: Present: supple, normal ROM - Respiratory Respiratory effort: normal - Extremities Extremity abnormal: edema (unchanged) - Abdominal General gastrointestinal: Present: soft, non-tender, non-distended - Musculoskeletal Musculoskeletal: left sided weakness (LLE, left foot drop) - Psychiatric Psychiatric: appropriate mood/affect, cooperative - Neurologic Neurologic: CNII-XII intact Plan Activity: no driving until cleared by PCP, fall precautions Weight Bearing Status: Full Weight Bearing Diet: low fat, low cholesterol Special Instructions: physical therapy, occupational therapy, other (outpt PT/OT /EDUCATION AND OUTREACH COORDINATOR- [facility]) Durable Medical Equipment Needed Upon Discharge: Walker-Rolling, Wheelchair, Bedside Commode, [place] [place] [facility] Additional Instructions: Dr. Chaitanya Ybarra, Neurology, 1-2 weeks Follow up with: LOLITA LEORA MD [Staff Physician] - 7 Days KARLA LOERA MD [Referring] - 7 Days Prescriptions: traZODone [Desyrel] 100 mg PO QHS #30 tablet Atenolol [Tenormin] 50 mg PO QDAY #30 tablet carBAMazepine [TEGretol] 200 mg PO QID #120 tablet Hydrocortisone [Cortef TAB] 20 mg PO BID #60 tablet
--- NOTE | 2016-10-11 13:51 | Progress Note ---
Subjective - Reason for Consult Consult date: 10/11/16 Reason for consult: Psychiatry Follow-up - Chief Complaint Chief complaint: "I am not getting enough rest" This is a 60 year old female who was transferred to [facility] from [facility] after treatment of dehydration, sepsis, BRAULIO and associated metabolic encephalopathy. Upon arrival to her room, patient was preparing for discharge. She was excited about leaving the hospital and going to rehab. She acknowledged sleeping a "little" last night. We spoke about good sleep hygiene once she arrive to rehab/home. She denies SI/HI's and AVH's. Mental Status Exam - Vital signs Last Vital Signs Temp 99.8 F H 10/11/16 07:36 Pulse 92 H 10/11/16 10:00 Resp 16 10/11/16 10:00 BP 139/71 10/11/16 09:04 Pulse Ox 98 10/11/16 10:00 - Exam Orientation: time, place, person Affect: normal Mood: appropriate Thought content: other (none) Thought Process: Intact Perceptions: none Speech: normal rate and pattern Concentration: other (intact) Motor activity: other (sitting in wheelchair) Level of consciousness: alert Interaction: cooperative, pleasant Assessment and Plan Impression: Mild to Moderate Reversible Cognitive Impairment related to recent Metabolic Encephalopathy. Patient is A/Ox4 with no signs of distress or confusion. Plan: - Discharge today pending - Patient was given DC Referral Hotline to locate Psychiatry/Mental Health services in her area. - Continue Trazodone 100mg PO at bedtime for sleep. - Continue Prozac 30 mg PO daily for depression. - Discussed Black Box warning with patient reference both Trazodone and Prozac ( Suicidality).
--- NOTE | 2016-10-11 15:15 | XRay Report ---
AP CHEST: HISTORY: Hypertension, sepsis AP view of the chest demonstrates a normal mediastinal and cardiac contour with clear lungs and normal bony and soft tissue structures. IMPRESSION: Unremarkable AP chest.
== END 2016-10-11 16:15 | disposition home or self-care (01) | DRG 871 ==
LOC: 3B 13:54
PROVIDERS: ADMIT Family Medicine; ATTEND Family Medicine
PROC: 5A1D00Z (ICD-10-PCS; principal; 2016-09-22)
PROC: 05PYX3Z Removal of Infusion Device from Upper Vein, External Approach (ICD-10-PCS; 2016-10-04)
DX: A41.9 Sepsis, unspecified organism (principal); G93.41 Metabolic encephalopathy; N17.0 Acute kidney failure with tubular necrosis; E87.1 Hypo-osmolality and hyponatremia; Z68.41 Body mass index [BMI] 40.0-44.9, adult; B37.49 Other urogenital candidiasis; E86.0 Dehydration; E87.6 Hypokalemia; I10 Essential (primary) hypertension; G35 Multiple sclerosis; G31.84 Mild cognitive impairment of uncertain or unknown etiology; F41.9 Anxiety disorder, unspecified; R26.9 Unspecified abnormalities of gait and mobility; D69.6 Thrombocytopenia, unspecified; M21.372 Foot drop, left foot; B96.20 Unspecified Escherichia coli [E. coli] as the cause of diseases classified elsewhere; R32 Unspecified urinary incontinence; E66.01 Morbid (severe) obesity due to excess calories; F32.9 Major depressive disorder, single episode, unspecified; G62.9 Polyneuropathy, unspecified; Z82.3 Family history of stroke; Z83.3 Family history of diabetes mellitus
CPT/HCPCS: 36415; 71010; 80048; 80053; 82550; 82962; 83036; 85007; 85025; 85027; 87086; J1644; J7030